=== PATIENT | male | born 1965 | race Caucasian/White ===

== ENCOUNTER 2023-03-06 13:41 | Outpatient (CLI) | payer OTHER, SELFPAY ==
[2023-03-06 20:09] LABS: Alanine Aminotransferase 23 U/L (6-50); Albumin Level 4.4 g/dL (3.5-5.1); Alkaline Phosphatase 66 U/L (38-126); Anion Gap 6 mmol/L (8-16); Aspartate Amino Transferase 31 U/L (17-59); Bilirubin,Total 0.9 mg/dL (0.2-1.3); Blood Urea Nitrogen 15 mg/dL (9-20); Calcium 9.6 mg/dL (8.4-10.2); Carbon Dioxide 27 mmol/L (22-30); Chloride 105 mmol/L (98-107); Cholesterol 138 mg/dL (0-200); Estimated Glomerular Filt Rate > 60; Glucose 85 mg/dL (65-110); HDL Direct 36 mg/dL; Potassium 3.8 mmol/L (3.4-5.0); Sodium 138 mmol/L (137-145); Triglycerides 79 mg/dL (<150)
[2023-03-06 20:20] LABS: LDL Cholesterol Direct 84 mg/dL
[2023-03-06 20:39] LABS: Prostate Specific Antigen 0.6 ng/mL (< OR = 4.0)
== END 2023-03-06 13:42 | disposition home or self-care (01) ==
LOC: ANHGOSHLAB 13:43
PROVIDERS: PCP Family Medicine; Visit Provider Family Medicine
DX: Z00.00 Encounter for general adult medical examination without abnormal findings (principal); E78.5 Hyperlipidemia, unspecified; I10 Essential (primary) hypertension; Z12.5 Encounter for screening for malignant neoplasm of prostate
CPT/HCPCS: 36415; 80053; 80061; 84153; G0103

== ENCOUNTER 2024-10-08 12:36 | Emergency (ER) | payer OTHER, SELFPAY ==
[2024-10-08 12:50] VITALS: BP 165/107; PULSE 67; RESP 20; TEMP 36.2; O2SAT 100
--- NOTE | 2024-10-08 12:55 | ECG_ITS ---
Test Date: 2024-10-08 13:01:34 Measurements Intervals Esko Rate: 63 P: 33 CO: 192 QRS: 43 QRSD: 108 T: 80 QT: 400 QTc: 412 Interpretive Statements SINUS RHYTHM INFERIOR ST ELEVATION MYOCARDIAL INFARCT, ACUTE BASELINE ARTIFACT- I, III ABNORMAL ECG No previous ECG available for comparison Electronically Signed On 10-08-2024 13:09:22 CDT by Jaspreet Licea D.O.
--- NOTE | 2024-10-08 13:03 | PC.NURSE ---
brought back to room, updated on status of pt and plan of care. Standing at bedside with pt.
[2024-10-08] MEDS: ASPIRIN 81 MG CHEWABLE TABLET 324 MG PO (13:09)
--- NOTE | 2024-10-08 13:10 | PC.NURSE ---
EMS here, report given.
--- NOTE | 2024-10-08 13:11 | PC.NURSE ---
Pt signed consent for transfer.
--- NOTE | 2024-10-08 13:18 | ED_ITS ---
HPI - Chest Pain General Chief Complaint: Chest Pain Stated Complaint: Nausea/Tight Chest/Back Pain/High Blood Pressure Time Seen by Provider: 10/08/24 12:54 Source: patient and RN notes reviewed Mode of arrival: ambulatory Limitations: no limitations History of Present Illness HPI narrative: Patient presents today complaining of sweats that started 5 hours prior to arrival, pain to the left scapula, epigastrium, lightheadedness, and left sternal border that started 4 hours prior to arrival. He was mowing his grass this morning, which is what he attributed his sweating to. He also has not had any food since 7:00 p.m. last night due to prepping for a colonoscopy tomorrow. He has not starting drinking the prep yet. He took a Tums, which he states helped slightly. He also applied Biofreeze to his scapula. Denies numbness or tingling in the extremities, vision changes, shortness of breath, headache. History of hypertension for which he takes amlodipine and losartan. Blood pressure upon arrival as 165/107. Related Data Home Medications ?Medication ?Instructions ?Recorded ?Confirmed ?Last Taken ?Type aspirin 81 mg tablet,delayed 81 mg PO DAILY 06/24/23 09/29/24 Unknown History release (Adult Low Dose Aspirin) Allergies Allergy/AdvReac Type Severity Reaction Status Date / Time Penicillins Allergy Mild Unknown Verified 10/08/24 13:21 Review of Systems Review of Systems: CONSTITUTIONAL: Denies body aches, fever, chills, or sweats. EYES: Denies visual changes, redness, or discharge. ENT: Denies rhinorrhea, congestion, sore throat, or otalgia. CARDIOVASCULAR: Denies palpitations, or edema.+ chest pain RESPIRATORY: Denies cough or dyspnea. GASTROINTESTINAL: Denies vomiting, or diarrhea.+ epigastric pain, nausea GENITOURINARY: Denies dysuria or hematuria. SKIN: Denies rash, itching, or wounds. MUSCULOSKELETAL: + left scapular pain NEUROLOGIC: Denies headache, numbness, tingling, or weakness.+ lightheadedness PSYCH: Denies depression or anxiety. [facility] Social History Social History Smoking packs per day: 1 Smoking cigarettes per day: 20.0 Years smoked: 41 Smoking pack-years: 41.00 Smoking status: Current every day smoker Tobacco type: cigarettes Alcohol intake: current Drinks per week: 1 Substance use type: does not use Living arrangements: with family Spiritual care concerns: No Comments At time of signature, I have reviewed and agree with nursing past medical, surgical, social and family history unless otherwise noted. Please see nursing chart for further information. There is no relevant family history pertinent to the presenting complaint Exam Narrative: GENERAL: Well-appearing, well-nourished, and in no acute distress. HEAD: Normocephalic, atraumatic. EYES: EOMI. No redness or drainage. Conjunctivae normal. ENT: Mucous membranes pink and moist. NECK: Normal AROM. CHEST: No respiratory distress. Clear to auscultation. Mildly tender to the left scapular border without crepitus or other abnormality HEART: Regular rate and rhythm. No murmur appreciated. Normal peripheral pulses. ABDOMEN: Soft, nontender, nondistended, normal active bowel sounds. MUSCULOSKELETAL: No bony tenderness to the left scapula. EXTREMITIES: Normal range of motion. No edema. SKIN: Warm, dry, no rash. Capillary refill normal. Normal skin turgor. NEURO: No focal deficits. Alert and oriented x3. Gait steady. PSYCH: Normal affect. No signs of depression or anxiety. Course Course Emergency Course: 1306- Report called to ED 1309- 324 ASA administered 1313- EMS arrived to transport pt to the ED. Level of Care: Express Care Visit Vital Signs Vital signs: Vital Signs Temperature 97.2 F L 10/08/24 13:10 Pulse Rate 10/08/24 13:10 Respiratory Rate 10/08/24 13:10 Blood Pressure 165/107 H 10/08/24 13:10 Oxygen Delivery Room Air 10/08/24 13:10 Temperature 97.2 F L 10/08/24 13:10 Pulse Rate 67 10/08/24 13:10 Respiratory Rate 10/08/24 13:10 Blood Pressure 165/107 H 10/08/24 13:10 Oxygen Delivery Room Air 10/08/24 13:10 Reviewed Transfer Transfered to: [place] Transportation: ALS Transfer rationale: ST elevation, chest pain Accepting physician: Valorie MARIE - Chest Pain Differential Diagnosis Differential diagnosis: Likely stable angina, atypical chest pain, st elevation myocardial infarction, chest pain and other (gastritis, dehydration, musculoskeletal pain, cholecystitis) ECG Data EKG #1: Attestation: I personally reviewed and interpreted this ECG as follows: ECG completion date: 10/08/24 ECG completion time: 13:01 Ischemic changes: acute STEMI and ST elevation Interpretation: ST elevation II, III, aVF. Depression aVL Critical Care Time Critical Care Time Critical Care Time: No Discharge Plan Discharge Clinical Impression: ST elevation Chest pain Qualifiers: Chest pain type: unspecified Qualified Code(s): R07.9 - Chest pain, unspecified Patient Disposition: Acute Care Hospital Condition: Serious Patient Language: Occitan Prescriptions: No Action aspirin [Adult Low Dose Aspirin] 81 mg tablet,delayed release (DR/EC) 81 mg PO DAILY losartan 100 mg tablet See Rx Instructions .ROUTE .COMPLEX Qty: 90 1RF Dose Instruction: TAKE 1 TABLET BY MOUTH DAILY Rx Instructions: TAKE 1 TABLET BY MOUTH DAILY amlodipine-atorvastatin 10-10 mg tablet See Rx Instructions .ROUTE .COMPLEX Qty: 90 1RF Dose Instruction: TAKE 1 TABLET BY MOUTH DAILY Rx Instructions: TAKE 1 TABLET BY MOUTH DAILY Follow-up/Referrals: Heber Harry MD [Primary Care Provider] - Time of Disposition: 13:20
== END 2024-10-08 13:16 | disposition short-term general hospital (02) ==
PROVIDERS: Emergency Provider Nurse Practitioner; PCP Family Medicine
DX: I21.3 ST elevation (STEMI) myocardial infarction of unspecified site (principal); R07.9 Chest pain, unspecified; F17.210 Nicotine dependence, cigarettes, uncomplicated; I10 Essential (primary) hypertension; E78.00 Pure hypercholesterolemia, unspecified
CPT/HCPCS: 93005; 99215; A9270; G0463

== ENCOUNTER 2024-10-08 13:32 | Inpatient (IN) | payer OTHER, SELFPAY ==
[2024-10-08] VITALS (41 sets, daily range): BP systolic 132–165; BP diastolic 87–114; PULSE 59–83; RESP 12–20; TEMP 36.2–36.6; O2SAT 92–100; BMI 31.1
--- NOTE | 2024-10-08 13:37 | ED_ITS ---
HPI - Chest Pain General Chief Complaint: Chest Pain Stated Complaint: STEMI History of Present Illness HPI narrative: 59-year-old male with history of hypertension presenting to the emergency department via EMS for concerns of STEMI. Patient presents to urgent care today after he had sudden-onset left scapular pain and epigastric pain with some nausea. He went to urgent care where they conducted an EKG that showed an inferior STEMI and called me in the emergency department for transfer. Patient received 324 mg aspirin at the urgent care and he feels markedly improved. No history of heart attacks in the past, only history of inguinal hernia repair but no other vascular procedures. Interventional Cardiology was spoken to and Dr. Barreto was made aware with EKGs reviewed and landscaping and groundskeeping laborer was activated for immediate transfer of the patient upon arrival to the emergency department. Related Data Home Medications ?Medication ?Instructions ?Recorded ?Confirmed ?Last Taken ?Type aspirin 81 mg tablet,delayed 81 mg PO DAILY 06/24/23 09/29/24 Unknown History release (Adult Low Dose Aspirin) Allergies Allergy/AdvReac Type Severity Reaction Status Date / Time Penicillins Allergy Mild Unknown Verified 10/08/24 13:21 Review of Systems Review of Systems: As reviewed above [facility] Social History Social History Smoking packs per day: 1 Smoking cigarettes per day: 20.0 Years smoked: 41 Smoking pack-years: 41.00 Smoking status: Current every day smoker Tobacco type: cigarettes Alcohol intake: current Drinks per week: 1 Substance use type: does not use Living arrangements: with family Spiritual care concerns: No Exam Narrative: GENERAL: [Well-appearing, well-nourished, and in no acute distress.] HEAD: [Normocephalic, atraumatic.] EYES: [PERRLA and EOMI.] ENT: Nares clear, no rhinorrhea or epistaxis. Mucous membranes moist. NECK: Supple. CHEST: [Clear to auscultation. No respiratory distress.] HEART: [Regular rate and rhythm]. No murmur heard. [Normal peripheral pulses.] ABDOMEN: [Soft, nondistended], [nontender], [No rigidity or guarding] EXTREMITIES: Normal range of motion. [No edema.] SKIN: Warm, dry, no rash. NEURO: [No focal deficits]. Alert and oriented [x3.] PSYCH: [Normal mood and affect.] MDM - Chest Pain MDM Narrative Medical decision making narrative: 59-year-old male with history of hypertension presenting to the emergency department as a STEMI activation. Urgent Care receive this patient earlier this morning after he arrived for concerns of sudden onset left scapular pain, epigastric pain and nausea at 8am. He was found to be mildly hypertensive and an EKG done at urgent care shows ST elevations in leads 2 3 and AVF. This EKG was transmitted to me in the emergency department and the catheterization lab wa s activated interventional Cardiology was made aware and has arrived to the ER to meet the patient. Patient examined, has strong symmetric pulses, clear breath sounds, no leg swelling. Pain is improved after aspirin. ST segment elevations mi confirmed on EKG and patient was transferred to the landscaping and groundskeeping laborer for definitive interventions with emergency dispatcher Dr. Calixto Barreto. Medical Records Data Attestation: I reviewed the patient's medical records. ECG Data EKG #1: Attestation: I personally reviewed and interpreted this ECG as follows: ECG completion date: 10/08/24 ECG completion time: 13:11 Prior ECG tracings: not available for review Ischemic changes: acute STEMI Interpretation: ST segment elevation in leads 2 3 and AVF with reciprocal depressions in leads aVL. Inferior STEMI. QTC 397 KS interval 192, QRS 116. Sinus rhythm with no ectopy. Critical Care Time Critical Care Time Critical Care Time: Yes Total Critical Care Time: 15 Discharge Plan Discharge Clinical Impression: STEMI (ST elevation myocardial infarction) Patient Disposition: Still a Patient Condition: Guarded Prognosis Time of Disposition: 13:41
--- NOTE | 2024-10-08 13:38 | PM.IMHP ---
H&P: HPI History of Present Illness Date/Time: 10/08/24 13:38 Chief Complaint: Chest pain Narrative: 59-year-old man with hypertension hyperlipidemia presented with chest pain. Substernal crushing chest discomfort started this morning after waking up. The pain persisted prompting him to visit the urgent care center where he was found to have ST-elevation NJ in inferior leads for which he was transferred to [facility] for primary PCI. Denies any bleeding issues. No previous vascular surgeries. No previous cardiac conditions. Review of Systems Cardiovascular: Cardiovascular: Reports as per HPI Respiratory: Respiratory: Reports as per HPI [facility] Social History Social History Smoking packs per day: 1 Smoking cigarettes per day: 20.0 Years smoked: 41 Smoking pack-years: 41.00 Smoking status: Current every day smoker Tobacco type: cigarettes Alcohol intake: current Drinks per week: 1 Substance use type: does not use Living arrangements: with family Spiritual care concerns: No Meds Home Medications and Allergies Home Medications ?Medication ?Instructions ?Recorded ?Confirmed ?Type aspirin 81 mg tablet,delayed 81 mg PO DAILY 06/24/23 09/29/24 History release (Adult Low Dose Aspirin) amlodipine 10 mg-atorvastatin 10 See Rx Instructions .Route 08/14/24 09/29/24 Rx mg tablet .COMPLEX #90 tabs losartan 100 mg tablet See Rx Instructions .Route 08/14/24 09/29/24 Rx .COMPLEX #90 tabs Allergies Allergy/AdvReac Type Severity Reaction Status Date / Time Penicillins Allergy Mild Unknown Verified 10/08/24 13:21 Exam Const: General: uncomfortable HENMT: Mouth: Yes dry mucous membranes Eyes: EOM: EOMs intact bilaterally Neck: Neck: no JVD Resp: Effort & Inspection: normal respiratory effort Cardio: Rate: regular rate Rhythm: regular rhythm Neuro: Speech: normal speech Extrem: General: no pedal edema Assessment and Plan Assessment and plan (1) STEMI (ST elevation myocardial infarction): Code(s): I21.3 - ST elevation (STEMI) myocardial infarction of unspecified site Status: Acute Plan 59-year-old man with hypertension hyperlipidemia presented with chest pain Inferior ST-elevation NJ -he is status post aspirin 324 mg chewable -will load with Brilinta 180 mg p.o. -we discussed the risk and benefits of cardiac catheterization with primary PCI on patient agreed to proceed forward -will proceed with emergent cardiac catheterization with primary PCI -will obtain transthoracic echocardiogram
--- NOTE | 2024-10-08 13:41 | P.SEDATION_ITS ---
Moderate Sedation Note-Pt Data Patient Data Allergies Allergy/AdvReac Type Severity Reaction Status Date / Time Penicillins Allergy Mild Unknown Verified 10/08/24 13:21 Home Medications ?Medication ?Instructions ?Recorded ?Confirmed ?Type aspirin 81 mg tablet,delayed 81 mg PO DAILY 06/24/23 09/29/24 History release (Adult Low Dose Aspirin) amlodipine 10 mg-atorvastatin 10 See Rx Instructions .Route 08/14/24 09/29/24 Rx mg tablet .COMPLEX #90 tabs losartan 100 mg tablet See Rx Instructions .Route 08/14/24 09/29/24 Rx .COMPLEX #90 tabs Current Medications: Active Medications Perflutren Lipid Microsphere (Perflutren Lipid Microspheres 1.5 Ml Vial Diluted To 10 Ml Total Volume) 0 ml IV PUSH ONCE PRN; Protocol PRN Reason: adequate visualization Stop: 10/11/24 13:41 Sedation/Anesthesia: No previous sedation/anesthesia problems (including family history). [facility] Social History Social History Smoking packs per day: 1 Smoking cigarettes per day: 20.0 Years smoked: 41 Smoking pack-years: 41.00 Smoking status: Current every day smoker Tobacco type: cigarettes Alcohol intake: current Drinks per week: 1 Substance use type: does not use Living arrangements: with family Spiritual care concerns: No Mod Sed Physical Exam Physical Exam Pre Procedural Exam: Normal: Lungs, Heart Size, Heart Rate and Heart Rhythm Hours since solid foods: 12 Hours since liquid intake: 12 Mallampati Classification: class III Internal Medicine - PN: Obj Da Meds/Results Medications: Active Medications Generic Name Dose Route Start Last Admin Trade Name Freq PRN Reason Stop Dose Admin Perflutren Lipid Microsphere 0 ml 10/08/24 13:40 Perflutren Lipid Microspheres 1.5 Ml Vial Diluted To 10 Ml Total Volume IV PUSH 10/11/24 13:41 ONCE PRN adequate visualization Protocol ASA Classification/Sedation ASA Classification/Sedation ASA Class: IV Emergent: Yes Risks: Risks, benefits and alternatives explained and patient/family accepted plan for sedation. Patient re-evaluated immediately prior to sedation.
--- NOTE | 2024-10-08 13:41 | WPDHPUPDATE1 ---
History and Physical Update Update Date/Time: 10/08/24 13:41 History and Physical has been reviewed, including an updated exam of the patient. There are NO changes in the patient's condition. Risks, benefits, and alternatives have been discussed and questions answered. Patient agrees to proceed with procedure.
--- OUTSIDE RECORDS SUMMARY | 2024-10-08 14:11 | XMS_ITS | Continuity of Care Document ---
Author Organization [facility] Address [address] [place] [address] Phone Care Team Providers Care Fan Runner Name Role Phone Cordelia YOUSSEF, Savannah Unavailable Unavailable Allergies, Adverse Reactions, Alerts Substance Reaction Status Criticality No Known Drug Allergies Active No I nformation No Known Drug Allergies Active No I nformation Medications Medication Instructions Dosage Effective Dates (start - stop) Status Comments Zithromax Z-Mirza 250 mg tablet take 2 tablet by oral route every day for 1 day then 1 tablet (250 mg) by oral route once daily for 4 days - No Longer Active Guaifenesin-DM 10 mg-100 mg/5 mL oral liquid take 5 milliliter by oral route every 4 hours as needed - No Longer Active Procedures Procedure Date Offic/outpt E&m Estab Mod-hi 2 17 Offic/outpt E&m Estab Low-mod 6 Offic/outpt E&m Estab Low-mod 6 TDAP Vaccine >7 IM Immuniz Admin; 1/combo Vacc/to 14 Offic/outpt E&m Estab Mod-hi 2 14 Well Visit (40-64) Office Exam - Limited Advance Directives Directive Yes / No Effective Date File Name No Information Encounters Encounter Description Practice Location Reason(s) For Visit Diagnoses Date Provider Providers Copied on Encounter Offic/outpt E&m Estab Mod-hi 2 [facility], [address], [place], [place], [id number] , [place] tel: [phone] [facility] Cough (chief complaint) Cough Dec- 7 Cordelia Nuñez. [address], [place], [place], [id number], [place]. tel:[phone] Referring Provider: Savannah YOUSSEF, [address], [place], [address]. tel:[phone] Offic/outpt E&m Estab Low-mod [facility], [address], [place], [place], [id number] , tel: [phone] [facility] Rt side lower Abdominal pain (chief complaint) Right lower quadrant abdominal pain 6 Mariana Bravo. [id number] [place] [address], [address], [place]. tel:[phone] Referring Provider: R[place]ña [place], [address] [place], [address]. tel:[phone] Offic/outpt E&m Estab Low-mod [facility], [address], [place], [place], [id number] , tel: [phone] [facility] Rt thigh pain (chief complaint) Pain of right lower extremity 6 Nathaniel Crockett. [address] [facility], [address], [place], [place], [id number], [place]. tel:[phone] [place]: [place], [address] [facility], [address], [place], [address]. [phone] Offic/outpt E&m Estab Mod-hi 2 [facility], [address], [place], [place], [id number] , [place] tel: [phone] [facility] head injury (chief complaint) VACCINE FOR DTP, DTaPLaceration of scalpHead injury, acute, without loss of consciousnessEleva jose f blood pressure 4 Mercy Carlson. [address] [address], [address], [place], [place], [id number], [place]. tel:[phone] Well Visit (40-64) [facility], [address], [place], [place], [id number] , tel:[phone] [facility] establish care (chief complaint) PHYSICAL/GEN MEDICAL EXAM 2 Nathaniel Crockett. [address] [facility], [address], [place], [place], [id number], [place]. tel:[phone] Referring Provider: [place], [address] [facility], [address], [place], [address]. tel:[phone] Office Exam - Limited [facility], [address], [place], [place], [id number] , tel:[phone] [facility] AnxietyInsomnia, OtherErectile Dysfunction 2 Mercy Carlson. [address] [facility], [address], [place], [place], [id number], . tel:[phone] Family History Family Member Type Diagnosis Age At Onset No Information Immunizations Vaccine Date Status Comments Tdap (Boostrix r) administered Source: [place] Immunization Record Payers Payer name Insurance type Covered libertarian ID Authoriza tion(s) No Information Social History Type Description Quantity Date Captured Comments Alcohol Use Details Unknown Caffeine Use Details Unknown Tobacco Use Status No Information Smoking Status No Information Sex Male Vital Signs Date / Time: Height Weight BMI Pulse Rate Blood Pressure Temperature Respiratory Rate Body Surface Area Head Circumference Head Circ. Percentile Wt./Parviz. Percentile BMI percentile Pulse Ox Inhaled Ox 8:11 PM 89 /min 157/93 mm[Hg] 99.00 F 14 /min 97 % Chief Complaint And Reason For Visit From encounter dated '01/03/2017 18:27'. Cough (chief complaint). Description: Onset: 1 Week. The severity of the problem is moderate. Symptoms are associated with recent cold. Aggravating factors include exertion. Associated symptoms include cough (hacking) and fever. Pertinent negatives include fatigue. Additional information: wakes up at night frequently. Reason For Referral Reason For Referral No Information Plan Of Treatment Date Type Action Status Goal H&P. Due on due Goal FOBT. Due on due Goal Colonoscopy. Due on 017 due Referral Ordered: US Abdomen Complete ordered Future Order: Radiology Order US Abdomen Complete ([id number]), Added on: New History Of Present Illness Encounter Date Complaint History Of Prese nt Illness Cough Onset: 1 Week. T he severity of the problem is moderate. Symptoms are associated with recent cold. Aggravating factors include exertion. Associated symptoms include cough (hacking) and fever. Pertinent negatives include fatigue. Additional information: wakes up at night frequently. Rt side lower Abdominal pain 2da y history of RLQ pain. Aching pain, 8/10, non radiating. +Lethargy, dizziness. Fever last night to 102.4F. +Chills. Decr appetite. No CP, no SOB, no diarrhea, no blood in the stool, no urinary symptoms. No strange foods eaten in the last 24hrs. No sick contacts, no recent travel. Still has appendix. Rt thigh pain pt c.o x 1 wk hx of pain in the upper right thigh, he was watching a movie with his and daughter and remembers feeling a tightness behind the right thigh, he states the symptom have gotten worse to the point that he is having problems sleeping at night, he is also traveling to [place] this Saturday and wants to make sure he does not have any blood clots, denies chest pain, shortness of breath head injury (comments) Patient s tates hit his head to a pole last night at home. No LOC. No headache, nausea, vomiting, dizziness, tingling or numbness. Last Td unknown possibly more than 5 years. BP high. Patient states has history of elevated BP, exercises daily and it has been controlled but not checked his BP recently. head injury Onset: 1 day ago . Additional information: hit on poolside. ar. establish care pt here to [facility], he needs a PA on his cialis bec his insurance is not covering it, has been on this medication for years, no complaints, he is also due for labs Functional Status Date Functional Assessmen t No Information Instructions Date Instruction Additional Infor mation Meds as prescribedCa n take Flonase OTCInstructed to increase fluids, gargle with salt waterTylenol or Motrin as needed for pain and feverRx sent to pharmacy for cough syrupNotified of potential for sedative effects of prescription cough syrup, do not drive while using itFollow up with Primary care provider in 1 week if not improving Related to Cough Get ultrasound done. If you have worsening abdominal pain, inability to tolerate food, persistent fever, blood in your stool go to the emergency room immediately. Related to Right lower quadrant abdominal pain DVT ultrasound to be done at [facility] [place] tomorrow at 10 AMTylenol with codeine take 1 tab at bedtime as needed for pain Related to Pain of right lower extremity Nutritional counseling provided Related to Obesity Physical activity counseling pro vided Related to Obesity Assessments Type Assessment Date assessment Cough Mental Status Date Cognitive Assessment Orientation - [place] ed to time, place, person, situation. Patient Care Teams Name Effective Dates (start - stop) Status Members No Information
--- OUTSIDE RECORDS SUMMARY | 2024-10-08 14:11 | XMS_ITS | Data Portability ---
Author Organization [place] - [facility] [employer], [facility], [facility] Address [address] [place] [address] Care Team Providers Care Branch Service Associate Name Role Phone Unavailable Referring Provider Assessment Encounter Date Assessment Date Assessment LastModified by Organization Details LastModified Time 09/26/2018 09/26/2018 Established patient. No local PCP, just moved to the area. [email or web address] Not available 09/27/2018 20:50:25 Plan of Treatment Reminders Order Date Submit Date Provider Last Modified By Organization Details Last Modified Time Details Appointments None recorded. Lab None recorded. Referral None recorded. Procedures None recorded. Surgeries None recorded. Imaging XR, ankle 2019 020 [facility], [facility], All Locations, [place], [address], 0 11:25:53 Medication Orders clonidine HCl 0.1 mg tablet 2022 023 yas Not available 3 18:52:07 clindamycin HCl 300 mg capsule 2022 023 [email or web address] [facility] #[id number], [address], [place], [place], [id number], 3 08:43:13 indomethaci n 50 mg capsule 2019 020 [email or web address][id number], [address], [place], [place], [id number], 3 08:01:49 doxycycline hyclate 100 mg tablet 2019 020 [email or web address] [facility] #[id number], [address] , [place], [place], [id number], 0 07:57:13 Bactrim DS 800 mg-160 mg tablet [address] [facility] #[id number], [address], [place], [place], [id number], 0 10:37:53 prednisone 10 mg tablet [address] [facility] #04139, [address] , [place], [place], [id number], 0 10:38:03 Depo-Medrol 80 mg/mL suspension for injection 2019 020 [email or web address] Not available 0 07:57:05 Patient TargetsNo targets recorded. Patient Instructions Encounter Date Encounter Id Patient Instructions Last Modified By Organization Details Last Modified Time 09/26/2018 [id number] subconjunctival hemorrhage: care instructions [email or web address] Not available 09/26/2018 10:09:05 subconjunctival hemorrhage information [email or web address] Not available 09/26/2018 10:09:05 Patient understa nds instructions and will seek medical attention if symptoms worsen as directed. Not available 09/26/2018 10:08:33 05/11/2019 [id number] chronic sinusiti s: care instructions [email or web address] Not available 05/11/2019 11:27:55 01/25/2020 [id number] Take medications as prescribed. If the mass enlarges, or rises to the skin surface, return for incision and drainage of the cyst. Not available 01/25/2020 10:58:48 This cyst remain s in a subacute stage, trial of oral antibiotic indicated. Not available 01/25/2020 10:59:22 04/13/2020 [id number] Rest. Take medications as prescribed. Ice area when painful. Follow-up with primary doctor in 10 to 14 days if not improved. Not available 04/13/2020 08:45:42 Pain localizes t o the area of the inferior extensor retinaculum, no muscular attachments exist in the area. Not available 04/13/2020 08:46:14 07/17/2022 [id number] Patient understa nds instructions and will seek medical attention if symptoms worsen as directed. [email or web address] Not available 07/17/2022 08:35:19 Reason for Referral None Reported. Results Created Date Observation Date Name Description Value Unit Range Abnormal Flag Note LastModifiedBy Organization Detail LastModifiedTime 04/13/20 20 04/13/2020 ankle 3V (comp lete) right No observ ation record ed. [id number] [facility] All Locations, [place], [address], 04/10/2024 19:36:59 Result Notes None recorded. Procedures Surgical History Date Name Laterality Status Provider Name and Address Organization Details Recorded Time Hernia repair completed [facility] 07/10/2018 14:32:51 Imaging Results None recorded. Procedure Notes None recorded. Medical Equipment None Reported. Allergies Allergen ID Allergen Name Allergen Category Reaction Reaction Severity Criticality Documentation Date Start Date Code Code System Note Provider Name and Address Organization Details Recorded Time 442096 Product containin g penicilli n (product) medicatio n Not available Not available Not available 07/10/2018 80295 8001 SNOMED Keke zacarias [facility] 9 13:21:04 Medications Name Sig Start Date Stop Date Status Note LastModified by Organization Details LastModified Time clonidine HCl 0.1 mg tablet one tab at 0825 am 2022 active Not Available Not Available Not Avai lable prednisone 10 mg tablet 1 tab 3 times daily 3 days, 1 tab twice daily 3 days, 1 tab daily 3 days. 01/24 completed Not Available Not Available Not Available clindamycin HCl 300 mg capsule Take 1 capsule every 6 hours by oral route. 2022 active Not Available Not Available Not Avai lable Depo-Medrol 80 mg/mL suspension for injection Take 80 mg by injection route. 04/13 completed Not Available Not Available Not Available amlodipine 10 mg tablet Take 1 tablet every day by oral route. active Not Available Not Available No t Available Lincocin 300 mg/mL injection solution Take 300 mg by injection route. 09/26 completed Not Available Not Available Not Available indomethaci n 50 mg capsule Take 1 capsule 3 times a day by oral route. 07/17 completed Not Available Not Available Not Available mupirocin 2 % topical ointment APPLY A SMALL AMOUNT TO THE AFFECTED AREA BY TOPICAL ROUTE 3 TIMES PER DAY 09/26 completed Not Available Not Available Not Available Aspir-81 mg tablet,jane yed release Take 1 tablet every day by oral route. active Not Available Not Available No t Available ketorolac 60 mg/2 mL intramuscul ar solution Inject 2 mL by intramusc ular route. 09/26 completed Not Available Not Available Not Available losartan 100 mg tablet Take 1 tablet every day by oral route. active Not Available Not Available No t Available doxycycline hyclate 100 mg tablet Take 1 tablet twice a day by oral route. 04/13 completed Not Available Not Available Not Available Bactrim DS 800 mg-160 mg tablet Take 1 tablet every 12 hours by oral route for 10 days. 01/24 completed Not Available Not Available Not Available Vitals Date Recorded Body height Body mass index (BMI) Body weight Body temperature Oxygen saturation Oxygen saturation in Arterial blood by Pulse oximetry Heart rate Respiratory rate Systolic blood pressure Diastolic blood pressure Provider Name and Address Organization Details Last Updated DateTime 0 185.42 cm 28.6 kg/m2 85719.5 4 g 98.3 [degF] 98 % 98 % 76 /min 16 /min 158 mm[Hg] 118 mm[Hg] Nohemy REARDON - [facility], [facility] 0 11:07:20 Date Recorded Systolic blood pressure Diastolic blood pressure Systolic blood pressure Diastolic blood pressure Provider Name and Address Organization Details Last Updated DateTime 07/17/2022 165 mm[Hg] 110 mm[Hg] 145 mm[Hg] 95 mm[Hg] SHARON CABALLERO [address], [place], [address] , [facility], [facility] 3 08:43:13 Date Recorded Body height Body mass index (BMI) Body weight Body temperature Heart rate Oxygen saturation Oxygen saturation in Arterial blood by Pulse oximetry Systolic blood pressure Diastolic blood pressure Provider Name and Address Organization Details Last Updated DateTime 3 185.42 cm 29.8 kg/m2 146591. 88 g 98.1 [degF] 78 /min 98 % 98 % 220 mm[Hg] 130 mm[Hg] Chalo Conte [facility], [facility] 3 08:08:51 Date Recorded Body height Body mass index (BMI) Body weight Body temperature Heart rate Oxygen saturation Oxygen saturation in Arterial blood by Pulse oximetry Systolic blood pressure Diastolic blood pressure Provider Name and Address Organization Details Last Updated DateTime 9 185.42 cm 27.8 kg/m2 46458.9 9 g 97.6 [degF] 72 /min 96 % 96 % 170 mm[Hg] 100 mm[Hg] Dominique Sánchez [facility], [facility] 9 09:36:44 Date Recorded Body height Body mass index (BMI) Body weight Heart rate Oxygen saturation Oxygen saturation in Arterial blood by Pulse oximetry Body temperature Systolic blood pressure Diastolic blood pressure Provider Name and Address Organization Details Last Updated DateTime 0 185.42 cm 29 kg/m2 39902.8 8 g 75 /min 98 % 98 % 98.3 [degF] 128 mm[Hg] 82 mm[Hg] Delfina Chatman [facility], [facility] 0 10:36:38 Date Recorded Body height Body mass index (BMI) Body weight Body temperature Oxygen saturation Oxygen saturation in Arterial blood by Pulse oximetry Heart rate Respiratory rate Systolic blood pressure Diastolic blood pressure Provider Name and Address Organization Details Last Updated DateTime 0 185.42 cm 29.8 kg/m2 553534. 44 g 97.3 [degF] 97 % 97 % 74 /min 16 /min 142 mm[Hg] 100 mm[Hg] Nohemy Seymour [place] - [facility] [facility] 0 07:53:01 Social History Question Answer Notes LastModified by Organizat ion Details LastModified Time Tobacco Smoking Status Current Every Day Smoker Keke Jose G [facility]acarias [facility] 07/10/2018 13:21:52 Alcohol Use Less Than 1 Per Month Information not available 07/10/2018 Marital Status Single Informatio n not available 07/17/2022 What Was The Date Of Your Most Recent Tobacco Screening? 09/26/2018 Information not available 07/17/2022 What Is Your Relationship Status? Single Information not available 07/17/2022 How Much Tobacco Do You Smoke? 0.5 PPD Information not available 07/10/2018 Sex: Unknown Functional Status None recorded. Mental Status None recorded. Family History Nothing Reported. Medical History Condition Response Cancer (location) N Other N Gout N Thyroid Disease N Kidney Stones N Measles/Mumps N Emphysema/COPD N Sexually Transmitted Disease N Depression N Prostate Problems N Vascular Disease N Rash/Skin Condition N Amputation (location) N Parkinson's N Paralysis N Headaches/Migraines N Cardiac Pacemaker/defibrillator N Nerve Damage / Neuropathy N Arthritis N Sleep disorder/Insomnia N Infertility N Heart disease / Heart Attack N Crohn's Disease N HIV/AIDS N Stroke/TIA N Colon Problems N High Cholesterol N Serious Injuries N Kidney Disease N Memory Loss/Alzheimer's N Gallbladder disease N High blood pressure Y Congestive heart failure N Falls N Alcohol Overuse N Blood Thinner Treatment N Hormone Replacement N Nervous Breakdown N Zhao's Esophagus N Anemia N Urinary Problems N Colon Polyps N Gastritis N Hospitalizations (other than operations) N Back pain N Diabetes N Rheumatic Fever N Bleeding Disorder N Cardiac Arrhythmias /irregular heart rat e N Osteopenia/Osteoporosis N Anxiety/Stress N Asthma N Vision Problems N Erectile / Sexual Dysfunction N Ostomies (location) N Seizures N Jaundice N Sleep Apnea N Hepatitis N Past Reacton to Contrast Media N Cirrhosis N GERD/Ulcer N Chicken Pox N Allergies (other than meds) N Immunizations Vaccine Type Date Status Note Provider Nam e and Address Organization Details Recorded Time TIG 03/29/2010 ALEXYS [place] [facility] 04/13/2020 07:55:48 Influenza, MDCK, quadrivalent, PF 01/25/2020 completed Nohemy zacarias [facility], [facility] 04/13/2020 07:55:48 Influenza, MDCK, quadrivalent, PF 03/29/2017 completed Nohemy zacarias, [facility], [facility] 04/13/2020 07:55:48 typhoid, ViCPs 05/27/2001 completed Nohemy ramirez null, [facility], [facility] 04/13/2020 07:55:48 Influenza, split virus, quadrivalent, PF 01/26/2020 completed Keke zacarias, [facility], [facility] 01/26/2020 08:46:59 Past Encounters Encounter ID Performer Location Encounter Start Date Encounter Closed Date Diagnosis/Indication Diagnosis SNOMED-CT Code Diagnosis ICD10 Code Diagnosis Note [id number] SALOME Tobar [facility] [address] [place] [address] 07/10/2018 12:58:31 07/12/2018 11:20:50 Nasal infection 943768945 J32.9 Acute, painful; initial encounter Pain of nose 711517470 J 34.89 Acute, initial encounter [id number] SALOME Fonseca [facility] [address] [place] [address] 09/26/2018 09:28:56 09/30/2018 16:51:27 Subconjunctival hemorrhage of right eye 2047371987 89141 H11.31 Acute. Incomplete control. Initial treatment. Informatio n sheet given to pt regarding subconjunc tival hemorrhage . Pt to monitor symptoms. Stressed need to go home and take blood pressure medication today. Need to monitor blood pressure closely. Goal for b/p is 120's/ 70's-80's. Encouraged good po fluid intake. Follow-up at the walk-in if no better or any worse. Patient voiced understand ing and agreement with treatment plan. [id number] SHARON Hargrove [facility] [address] [place] [address] 05/11/2019 10:19:29 05/12/2019 10:37:42 Sinusitis 27273880 J32.9 patient advised to take Bactrim and prednisone as directed. Patient is to take nasal spray hasn't home as directed. Can take Mucinex DM and Sudafed as directed. Increase fluids. [id number] Jorge Luis See , DO [facility] [address] [place] [address] 01/25/2020 10:18:27 01/25/2020 15:02:46 Sebaceous cyst of skin 089820674 L72.3 Administra tion of influenza vaccine 72722521 Z23 [id number] Jorge Luis See , DO [facility] [address] [place] [address] 04/13/2020 07:48:00 04/13/2020 11:49:24 Pain of right ankle joint 2518261396 2541258 M25.571 [id number] SHARON CABALLERO [facility] [address] [place] [address] 07/17/2022 07:52:26 07/17/2022 08:59:47 Infection of sebaceous cyst 401050446 L08.89 Acute, initial visit and symptomati c. Will elect to treat local right periorbita l skin infection with medication s as below and recommende d taking antibiotic with yogurt with acidophilu s and supportive treatment including rest and hydration. Also rec: hot soaks x 15 min. q 4 h and If no better in 5 to 7 days or symptoms worsen in the interim to return for reevaluati on. Patient fully understand s discharge instructio ns and is in total agreement of plan of care. Hypertensive disorder 38 726274 I10 Chronic, currently uncontroll ed, initial visit. Administer ed Clonidine 0.1 mg at 0825 am wth BP reduction of 145/95 at 0840. Recommende d to resume with antihypert ensives today and encouraged better adherence, reduce if not quit smoking, low-sodium diet less than 1500 mg/day and a consistent exercise program approachin g 90 minutes/we ek. He is to f/u with his PCP per her/his recommenda tions Health Concerns Section Related Observation LastModified by Organization Detai ls LastModified Time None Recorded Concern Status LastModified by Organization Details LastModified Time None Recorded Advance Directives Directive None Recorded Payers Insurance Date Sequence Insurance Name Policy Number Policy Hernandez Covered Member ID Hernandez Member ID Guarantor Name 07/17/2022 1 [facility] () Salvador Marsk [id number] Salvador Marks 02/04/2020 1 [employer] ( - MEDICARE SUPPLEMENT) Salvador Marks [id number] Salvador Marks Notes Date Note Type Note Provider Name and Address Organization Details Recorded Time 9 text/html Eye ComplaintReported bypatient.Reason for visit:acute complaint; Right eye, onset 1 day (last hs). Not a contact wearer. Denies a head ache, no eye pain. Last eye exam with current glasses 1 year ago. No hx of glaucoma. Location:right eye Quality:red eyes;irritation Severity:unchanged Duration:constant Onset/Timing:abrupt Context:no other sick contacts Alleviating factors:nothing Aggravating factors:nothing Associated Symptoms:no fever; no swollen lymph nodes; no head congestion Established patient. Patient c/o RT eye redness x 1 day. Denies coughing spells, denies vision changes, denies contact lense usage. SALOME Fonseca [address], [place], [address], [employer] [place] [facility] 09/27/2018 20:51:32 0 text/html 54-year-old male comes in with a 2 to three-week history of increased sinus congestion and pressure. Also complaining of slight cough and slight sore throat. Denies fever, nausea, vomiting or diarrhea. SHARON Hargrove [address], [place], [address], [employer] [facility], [employer] 05/11/2019 11:31:10 0 text/html CORONAVIRUS SCREENING TOOL Fever Confirmation No Respiratory Illnesses No Other New Symptoms None of the below Coronavirus Diagnosis/Testing/Quar antine No, I have not been tested Coronavirus Test Reason N/A Contact with Coronavirus No Imported from [facility] on 01/25/2020 54-year-old man presents with an uncomfortable lump on the back of the neck. Lump is been there for quite a few weeks, but overnight he noticed some discomfort with neck movement. Unrelated request for flu vaccination. Phuc See, DO [address], [place], [address], [employer], [employer] 01/25/2020 13:07:35 0 text/html 55-year-old man presents with insidious onset of right ankle pain. Pain is localized to the area of the medial malleolus. No injury, worse with weightbearing and prolonged activity such as playing golf. No history of gout. Phuc See, DO [address], [place], [address], [employer], [employer] 04/13/2020 09:09:21 3 text/html Abscess/CellulitisRepo rted bypatient.Reason for visit:acute complaint Location:right head(lateral to lateral canthus OD) Quality:inflammed;tend er Severity:worse Duration:constant Onset/Timing:abrupt;2 days ago Context:no recent travel; no recent injury; no recent stings/bites Alleviating factors:nothing Aggravating factors:squeezing it Associated Symptoms:no fever; no chills; no rigors; no dischargeHypertension/ Hypertensive diseasesReported bypatient.Reason for visit:exacerbation of chronic complaint Hypertension Diagnosis:Benign Essential hypertension Complications due to HTN:no complicatons Age of onset/treatment:unknow n years old Current therapy:antihypertensi ves; ARBs losartan; calcium channel blockers amlodipine Current control and compliance:usually well controlled; usually compliant with regimen (however has not taken his antihypertensives in 2 days) Current Symptoms/Concerns:none stated; no chest pain; no shortness of breath; no fatigue; no headaches; no blurred vision; no palpatations Express Covid Questions Are you feeling sick today? Includes any NEW symptom(s) among those listed previously that are NOT due to another health problem No Have you tested positive for COVID-19 in the past 10 days? No In the last 10 days, have you been exposed to someone who has tested positive for COVID-19? No Imported from [facility] on 07/17/2022 SHARON CABALLERO [address], [place], [address], [facility] [address] [facility], [facility] 07/17/2022 08:52:27
--- OUTSIDE RECORDS SUMMARY | 2024-10-08 14:11 | XMS_ITS | Patient Health Record ---
Author Organization [facility] Address [address] [address] Care Team Providers Care Head Batcher Name Role Phone Eligio Burns Primary Care Provider [phone] Allergies Allergen (clinical drug ingredient) Drug/Non Drug Allergy documented on EMR Reaction Allergy Type Onset Date Status Substance with penicillin structure and antibacterial mechanism of action (substance) Penicillins (uncoded) 12/23/2014-unkno wn Allergy Active Reason For Referral No Information Medications Medication SIG (Take, Route, Frequency, Duration) Notes Start Date End Date Status Nasonex 50 MCG/ACT 2 sprays in each nos tril Nasally Once a day for 7 days 03/19/2016 Active TobraDex 0.3-0.1 % 1 drop into affected eye Ophthalmic every 8 hrs Not-Takin g Aleve 220MG 1 tablet as needed P O PRN [facility]- 10/19/2014 Active Nasonex 50 MCG/ACT 2 sprays in each nos tril Nasally Once a day Not-Taking EC-81 Aspirin 81 MG 1 tablet Orally Once a day Active Vitamin D 2000 UNIT 1 tablet Orally Once a day Active Zithromax Z-Mirza 250 MG 2 tablets on the first day, then 1 tablet daily for 4 days Orally Once a day for 5 day(s) 04/20/2016 Not-Taking Ceftin 250 MG 1 tablet Orally Twic e a day for 7 days 03/19/2016 Not-Taking Losartan Potassium 100MG TAKE 1 TABLET DAILY Active amLODIPine Besylate 10MG TAKE 1 TABLET DAILY Active Zithromax Z-Mirza 250 MG 2 tablets on the first day, then 1 tablet daily for 4 days Orally Once a day for 5 day(s) 06/10/2015 Not-Taking Ceftin 250 MG 1 tablet Orally Twic e a day Not-Taking Immunizations Vaccine Route Administration Date Status Comme nts Influenzal (split), seasonal, intermuscular,preser vative free IM Intramuscular 02/04/2017 Administered Influenza, seasonal, injectable, preservative free, 3 yrs and above IM Intramuscular 03/06/2016 Administered Flu vaccine no Preserv 3 and > IM Intramuscular 02/22/2015 Administered Novartis Exp 08/2015 Problems Problem Type SNOMED Code ICD Code Onset Dates Problem Status W/U Status Risk Notes Problem Tobacco user (680892132) Nicotine dependence, cigarettes, uncomplicated (F17.210) Active confirmed Problem Essential hypertension (64414604) Essential (primary) hypertension (I10) Active confirmed Problem Gastro-esophageal reflux disease without esophagitis (890292015) Gastro-esophagea l reflux disease without esophagitis (K21.9) Active confirmed Problem 64622628 Hyperglycemia (R73.9) Active confirmed Problem 53931846 Vitamin D deficiency (E55.9) Active confirmed Problem 06780422 Blepharitis (H01.009) Active confirmed Problem 95829683 Rhinitis (J31.0) Active confirmed Problem 480946186048134 Acute conjunctivitis, left eye (H10.32) Active confirmed Problem 128034586 Esophageal reflux (K21.9) Active confirmed Problem 10607456 Tobacco use disorder (Z72.0) Active confirmed Problem 384901875 Other symptoms involving head and neck (R68.89) Active confirmed Problem 45546449 Allergic rhinitis (J30.9) Active confirmed Plan Of Treatment Pending Test Test Name Order Date LIPID PANEL 10/18/2015 LIPID PANEL WITH REFLEX TO DIRECT LDL BASIC METABOLIC PANEL 11/22/2016 COMPREHENSIVE METABOLIC PANEL 07/14/2016 COMPREHENSIVE METABOLIC PANEL 10/18/2015 COMPREHENSIVE METABOLIC PANEL 03/03/2016 CBC (INCLUDES DIFF/PLT) 03/03/2016 CBC (INCLUDES DIFF/PLT) 10/18/2015 CBC (INCLUDES DIFF/PLT) 11/22/2016 PSA, TOTAL 07/14/2016 TSH 03/03/2016 VITAMIN D,25-OH,TOTAL,IA 03/03/2016 VITAMIN D,25-OH,TOTAL,IA 11/22/2016 Insurance Providers Payer Name Payer Address Payer Phone Subscriber Number Group Number Insured Name Patient Relationship to Insured Coverage Start Date Coverage End Date MARIELA MIDDLETON [address] [place], [place] [id number] MARIO POLK Self - patient is the insured 0 Medical (General) History Surgical History Surgery Date(Month/Year) Foot Surgery ;
--- OUTSIDE RECORDS SUMMARY | 2024-10-08 14:11 | XMS_ITS | Continuity of Care Document ---
Author Organization Sean Knight MD, MPH. Inc. Address [address] [place] [address] Phone Care Team Providers Care Slicing Machine Feeder Name Role Phone Sean Knight MD Unavailable Unavailable Allergies, Adverse Reactions, Alerts Substance Reaction Status Criticality No Known Allergies Active No Inform ation Medications Medication Instructions Dosage Effective Dates (start - stop) Status Comments pantoprazole 40 mg tablet,delayed release take 1 tablet by oral route every day 40 MG - Active Cipro 500 mg tablet take 1 tablet by ora l route every 12 hours 500 MG - Active Flagyl 500 mg tablet take 1 tablet by OR AL route 2 times every day 500 MG - Active Xanax 0.25 mg tablet take 1 tablet by or al route every day 0.25 MG - Active Procedures Procedure Date Offic/outpt E&m Estab Mod-hi Colonoscopy Flex; W/remov Les- 20 Ugi Endo; W/bx 1/mx US Abdomen Complete US Retroperitoneal Compl. (Renal & Bladd er) Offic/outpt E&m Estab Mod-hi US Abdomen Complete US Retroperitoneal Compl. (Renal & Bladd er) Offic/outpt E&m Estab Mod-hi 4 18 Colonoscopy Flex; W/remov Les- 18 Offic/outpt E&m Estab Mod-hi 4 17 Colonoscopy Flex; W/remov Les- 17 Offic/outpt E&m Estab Mod-hi 4 17 Colonosocpy Flex; Remov Les-fo 17 US Abdomen Complete US Retroperitoneal Compl. (Renal & Bladd er) Offic Cons New/estab Mod-hi 80 17 Advance Directives Directive Yes / No Effective Date File Name No Information Encounters Encounter Description Practice Location Reason(s) For Visit Diagnoses Date Provider Providers Copied on Encounter Offic/outpt E&m Estab Mod-hi Sean Knight MD, MPH. Inc., [address] [place] [address], [id number] , tel: [phone] Sean Knight [facility], MPH[facility] Inc[facility] Dyspepsia (chief complaint)Ga stritis Atrophic (chief complaint)GE RD w/ esophagitis (chief complaint) Gastro-esophage al reflux disease with esophagitisChro jessy atrophic gastritis without bleedingFunctio nal dyspepsia 0 Eugene Estrada. [address], [address] [place] [address], [id number] , [place]. tel: [phone] Referring Provider: Sean Knight MD , [address], [place], [address] . tel:[phone] Sean Knight MD, MPH. Inc., [address], [address] , [place] tel: [phone] [facility] No Information 0 Eugene Estrada. [address], [address], [place], [id number] , [place]. tel:[phone] Referring Provider: Sean Knight MD , [address], [place], [address] . tel:[phone] Sean Knight MD, MPH. Inc., [address], [id number] , [place] tel: [phone] Sean Knight MD, MPH, Inc[facility] No Information 0 Eugene Estrada. [address], [address], [place], [place], [id number] , [place]. tel:[phone] Referring Provider: Sean Alves, [address], [place], [address] . tel:[phone] Offic/outpt E&m Estab Mod-hi Sean Knight MD, MPH. Inc., [address], [id number] , [place] tel:[phone] Sean Knight MD, MPH[facility] Inc[facility] Right lower abdominal pain (chief complaint)Dy spepsia (chief complaint)Di verticulosis (chief complaint) Right lower quadrant painDiverticula r disease of colonFunctional dyspepsia 0 Eugene Estrada. [address], [address], [place], [id number] , [place]. tel:[phone] Referring Provider: Sean Knight MD , [address], [place], [address] . tel:[phone] Sean Knight MD, MPH. Inc., [address], [place], [id number] , [place] tel:[phone] Sean Knight MD, MPH, Inc[facility] No Information 8 Eugene Estrada. [address], [address], [place], [id number] , [place]. tel:[phone] Referring Provider: Sean Knight MD H, [address], [place], [address] . tel:[phone] Offic/outpt E&m Estab Mod-hi 4 Sean Knight MD, MPH. Inc., [address], [place], [address] , [place] tel:[phone] Sean Knight MD, MPH, Inc. colon polyp of ascend colon (chief complaint)di verticulosis (chief complaint) Benign neoplasm of ascending colonDiverticul ar disease of colon 8 Eugene Estrada. [address], [address], [id number] , [place]. tel: [phone] Referring Provider: Sean Knight MD H, [address], [place], [address] . tel:[phone] Sean Knight MD, MPH. Inc., [address], [id number] , [place] tel: [phone] [facility] No Information 8 Eugene Estrada. [address], [address], [place], [address] , [place]. tel: [phone] Referring Provider: Sean Alves, [address], [place], [address] . tel:[phone] Offic/outpt E&m Estab Mod-hi 4 Sean Knight MD, MPH. Inc., [address] [place] [address], [id number] , [place] tel:[phone] Sean Knight MD, MPH[facility] Inc[facility] Colon polyp of ascend colon (chief complaint)Co gio polyp of sigmoid (chief complaint) Benign neoplasm of ascending colonBenign neoplasm of sigmoid colon 7 Eugene Estrada. [address], [address], [place], [address] , [place]. tel: [phone] Referring Provider: Sean Alves, [address], [place], [address] . tel:[phone] Sean Knight MD, MPH. Inc., [address] [place] [address], [id number] , [place] tel: [phone] [facility] No Information 7 Eugene Estrada. [address], [address], [place], [place], [address] , [place]. tel: [phone] Referring Provider: Sean Alves, [address], [place], [address] . tel:[phone] Offic/outpt E&m Estab Mod-hi 4 Sean Knight MD, MPH. Inc., [address], [address] , [place] tel: [phone] Sean Knight MD, MPH, Inc. Dyspepsia (chief complaint)GE RD w.o esophagitis (chief complaint)NA SH (chief complaint) Functional dyspepsiaGastro -esophageal reflux disease with esophagitisFatt y (change of) liver, not elsewhere classified 7 Eugene Estrada. [address], [address], [place], [address] , [place]. tel: [phone] Referring Provider: Sean Alves, [address], [place], [address] . tel:[phone] Sean Knight MD, MPH. Inc., [address], [address] , [place] tel: [phone] [facility] No Information 7 Eugene Estrada. [address], [address], [place], [address] , [place]. tel: [phone] Referring Provider: Sean Knight MD H, [address], [place], [address] . tel:[phone] Sean Knight MD, MPH. Inc., [address], [address] , [place] tel: [phone] Sean Knight MD, MPH, Inc. No Information 7 Eugene Estrada. [address], [address], [place], [address] , . tel: [phone] Sean Knight MD, MPH. Inc., [address] [facility] [address] [place] [address], [id number] , tel: [phone] Sean Knight MD, MPH, Inc. No Information 7 Eugene Estrada. [address], [address] , . tel: [phone] Referring Provider: Sean Alves, [address], [place], [address] . tel:[phone] Offic Cons New/estab Mod-hi 80 Sean Knight MD, MPH. Inc., [address], [id number] , tel: [phone] Sean Knight MD, MPH, Inc[facility] Lower Abdominal pain (chief complaint)NA SH (chief complaint)Sc reening colonoscopy (chief complaint) Lower abdominal pain, unspecifiedUnsp ecified cirrhosis of liverEncounter for screening for malignant neoplasm of colon 7 Eugene Estrada. [address], [place], [id number] , . tel: [phone] Referring Provider: Sean Alves, [address] [place] [address], [address] . tel:[phone] Family History Family Member Type Diagnosis Age At Onset No Information Payers Payer name Insurance type Covered alliance party ID Authoriza tion(s) [facility] [id number] Social History Type Description Quantity Date Captured Comments Alcohol Use Details Unknown Caffeine Use Details Unknown Tobacco Use Status No Information Smoking Status No Information Sex Male Vital Signs Date / Time: Height Weight BMI Pulse Rate Blood Pressure Temperature Respiratory Rate Body Surface Area Head Circumference Head Circ. Percentile Wt./Parviz. Percentile BMI percentile Pulse Ox Inhaled Ox 9:02 AM 75.00 in 100.244 kg (221.00 lbs) 27.6 2 kg/m eter (2) 68 /min 160/95 mm[Hg] Chief Complaint And Reason For Visit From encounter dated '07/14/2019 09:15'. Dyspepsia (chief complaint) Gastritis Atrophic (chief complaint) GERD w/ esophagitis (chief complaint) Reason For Referral Reason For Referral No Information Plan Of Treatment Date Type Action Status Goal Lipid Panel. Due on due Goal FOBT. Due on due Goal H&P. Due on due Goal Lipid Panel. Due on due Goal H&P. Due on due Goal FOBT. Due on due Goal Lipid Panel. Due on 018 due Goal H&P. Due on due Goal Lipid Panel. Due on due Goal H&P. Due on due Goal Lipid Panel. Due on due Goal H&P. Due on due Goal FOBT. Due on due Goal H&P. Due on due Goal Colonoscopy. Due on due Goal Lipid Panel. Due on due History Of Present Illness Encounter Date Complaint History Of Prese nt Illness GERD w/ esophagitis Dyspepsia Gastritis Atrophic Right lower abdominal pain Dyspepsia Diverticulosis colon polyp of ascend colon diverticulosis Colon polyp of ascend colon Colon polyp of sigmoid Dyspepsia GERD w.o esophagitis CRAIG Lower Abdominal pain CRAIG Screening colonoscopy Functional Status Date Functional Assessmen t No Information Instructions Date Instruction Additional Infor mation No Information Assessments Type Assessment Date assessment Gastro-esophageal reflux disease with esophagitis assessment Chronic atrophic gastritis witho ut bleeding assessment Functional dyspepsia Mental Status Date Cognitive Assessment Orientation - [place] ed to time, place, person, situation.Normal Orientation Patient Care Teams Name Effective Dates (start - stop) Status Members No Information
--- OUTSIDE RECORDS SUMMARY | 2024-10-08 14:11 | XMS_ITS | Continuity of Care Document ---
Author Organization [facility] Address [address] [place] [address] Care Team Providers Care Job Estimator Name Role Phone Noelle Mcintyre MD Unavailable Unavailable Allergies, Adverse Reactions, Alerts Substance Reaction Status Criticality No Known Allergies Active No Inform ation Medications Medication Instructions Dosage Effective Dates (start - stop) Status Comments Sutab 1.479-0.188-0.225 gram tablet take by oral route as directed per package instructions 0.00 - Active flecainide 50 mg tablet - Active Procedures Procedure Date Offic/outpt E&m [facility] Advance Directives Directive Yes / No Effective Date File Name No Information Encounters Encounter Description Practice Location Reason(s) For Visit Diagnoses Date Provider Providers Copied on Encounter [facility], [address], [place], [place], [id number] , [facility] No Information 2 Miguelina Drake. [address], [address], [place], [place], [address] . tel:[phone] Referring Provider: [place], [address] [address], [address], [place], [address]. tel:[phone] Offic/outpt E&m [facility], [address], [place], [place], [address] , [facility] Colon cancer screening (chief complaint) GERD (chief complaint) Encounter for screening for malignant neoplasm of colonHistory of colon polypsFamily history of colon cancerGastroesophage al reflux disease, unspecified whether esophagitis present Sep 2 Miguelina Drake. [address], [place], [place], [address] . [phone] [place], [address] [address], [address], [place], [address]. tel:[phone] Family History Family Member Type Diagnosis Age At Onset Father Problem cancer of colon (Cause Of De ath) 81 Payers Payer name Insurance type Covered libertarian ID Authoriza tion(s) [facility] PPO CI [id number] Social History Type Description Quantity Date Captured Comments Alcohol Use Details Unknown Caffeine Use Details Unknown Tobacco Use Status No Information Smoking Status No Information Sex Male Chief Complaint And Reason For Visit No Information Reason For Referral Reason For Referral No Information Plan Of Treatment Date Type Action Status Goal CT-Colonography. Due on due Goal Colonoscopy. Due on due Goal Zoster vaccine (1st). Due on due Goal Unhealthy drug use screening . Due on due Goal H&P. Due on due Goal Hepatitis C screening. Due o n due Goal FOBT. Due on due Goal FIT. Due on due Goal FIT-DNA. Due on due Goal Lipid Panel. Due on due Goal FOBT. Due on due Goal Lipid Panel. Due on due Goal H&P. Due on due Goal Colonoscopy. Due on due History Of Present Illness Encounter Date Complaint History Of Prese nt Illness Colon cancer screening (comments ) pt referred for history of polyp, came with ,Rachel , also a pt pt had history of large polyp . had colonoscopy 2-[address] Albina Knight. last colonsocopy 3 yr ago with polyp. father dx of colon cancer at 81 and at 83. GERD (comments) occasional sx de pend on diet. no n/v not taking OTC med yet. no cough. GERD Colon cancer screening Prior scr eening: colonoscopy. Risk Factors: family history - parent. There are no associated symptoms. Pertinent negatives include abdominal pain, change in bowel habits, change in stool caliber, constipation, decreased appetite, diarrhea, melena, nausea, rectal bleeding, vomiting, weight gain and weight loss. Additional information: No family history of Crohn's/colitis and Patient has family history of colon cancer. Functional Status Date Functional Assessmen t No Information Instructions Date Instruction Additional Infor nancy mild sx. no alarming sx1. Anti-reflux precautions:a. Avoid and minimized irritant food, including citrus, spicy, fatty, alcohol, etc.b. Avoid laying down after meal, wait at least 3-4 hours.c. Avoid wear tight clothingd. Do not drink and minimized carbonation and sodaRTC after colonoscopy Related to Gastroesophageal reflux disease, unspecified whether esophagitis present will obtain record if availabe R elated to History of colon polyps father at 81 Related to Famil y history of colon cancer history of polyp . d ue for survelilanc e1. Colonoscopy is recommended. The benefits, risks (including but not limited to are sedation, bleeding, infection, perforation, missed lesions including polyp and cancer, cardiopulmonary risk, etc. ) and alternatives were explained to patient. Patient agreed and expressed understanding. Patient will arrange for ride home, and to follow bowel preparation instruction. 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 increase risk for sedation, will obtain MAC Related to Encounter for screening for malignant neoplasm of colon Assessments Type Assessment Date No Information Patient Care Teams Name Effective Dates (start - stop) Status Members No Information
[2024-10-08 14:33] LABS: Hematocrit 39.4 % (42.0-52.0); Hemoglobin 13.2 g/dL (14.0-18.0); Mean Corpuscular HGB Conc 33.5 g/dl (32-36); Mean Corpuscular Hemoglobin 30.2 pg (26-34); Mean Corpuscular Volume 90.2 fl (80-100); Mean Platelet Volume 9.6 fl (7.4-10.4); Platelet Count Result 175 k/mm3 (150-375); Red Blood Count 4.37 M/mm3 (4.6-6.20); Red Cell Distribution Width 13.5 % (11.5-14.5)
[2024-10-08 14:43] LABS: Alanine Aminotransferase 14 U/L (6-50); Albumin Level 3.1 g/dL (3.5-5.1); Alkaline Phosphatase 48 U/L (38-126); Anion Gap 10 mmol/L (4-12); Aspartate Amino Transferase 33 U/L (17-59); Bilirubin,Total 0.6 mg/dL (0.2-1.3); Blood Urea Nitrogen 14 mg/dL (9-20); Calcium 7.4 mg/dL (8.4-10.2); Carbon Dioxide 21 mmol/L (22-30); Chloride 104 mmol/L (98-107); Estimated Glomerular Filt Rate > 60; Glucose 91 mg/dL (65-110); Potassium 3.1 mmol/L (3.4-5.0); Sodium 135 mmol/L (137-145); Total Protein 5.3 g/dL (6.3-8.2)
[2024-10-08 14:58] LABS: Troponin I 0.843 ng/mL (0.000-0.034)
[2024-10-08 15:12] LABS: Activated Clotting Time 268 SEC (74-137)
[2024-10-08 15:12] LABS: Activated Clotting Time 268 SEC (74-137)
--- NOTE | 2024-10-08 15:38 | ADMGEN ---
This patient, Salvador Marks, was admitted to Virtual Bed ICU-1. Patient/family oriented to hospital policies and general routines including ID bracelet, bed and alarms, visiting hours, pain management, procedures, bathroom and other care routines, personal items, smoking policy, room service/diet, and visiting hours. Information on how to activate the Rapid Response Team has been discussed. Patient/Family are encouraged to report perceived risks to care and to ask questions if they do not understand what they are told or what they should do.
--- NOTE | 2024-10-08 15:51 | ECG_ITS ---
Test Date: 2024-10-08 16:35:22 Measurements Intervals [place] Rate: 59 P: 25 IA: 183 QRS: -17 QRSD: 102 T: 28 QT: 410 QTc: 409 Interpretive Statements SINUS BRADYCARDIA INFERIOR ST ELEVATION MYOCARDIAL INFARCT- SUBACUTE BASELINE ARTIFACT- I, II, III, AVVR, AVL, AVF ABNORMAL ECG Compared to ECG 10/08/2024 13:01:34 STEMI EVOLVING Electronically Signed On 10-08-2024 16:49:48 CDT by Jaspreet Licea D.O.
--- NOTE | 2024-10-08 15:57 | P.PCNCC_ITS ---
Cardiac Cath Procedure Note Date of procedure:: 10/08/24 Performing physician:: CATHETERIZATION LABORATORY REPORT Procedure Date: 10/08/2024 Referring Physician: Dr. Eugene Anesthesia: Versed and Fentanyl were ordered and given in my presence at 1349, procedure ended at 1510. Supervision of nurse, Negra Chris monitored moderate sedation with 2mg Versed and 150mcg Fentanyl was provided for 81 minutes. Pre-op Diagnosis: Inferior ST-elevation WI Post-op Diagnosis: Inferior ST-elevation WI Procedure(s): Left heart catheterization with coronary angiography Ultrasound-guided arterial access IVS guided PCI Right iliofemoral angiogram Moderate sedation Angio-Seal Access Site: Right radial artery Brief History and Clinical Indications: 59-year-old man with hypertension hyperlipidemia presented with chest pain whose clinical presentation is consistent with inferior ST-elevation WI All risks, benefits and alternatives to left heart catheterization with or without percutaneous coronary intervention was discussed at length with the patient. Risk of complications including but not limited to bleeding, infection, arrhythmia, stroke, worsening kidney function, blood loss, groin hematoma, limb loss, emergency coronary artery bypass grafting, and even were discussed with the patient and all questions were answered. The patient understood and wished to proceed. Time out called, patient name, date of , medical record number, allergies, procedure performed, identify Associate Financial Representative, patient and staff member concurred with accurate data, procedure carried on. Findings: LEFT HEART CATHETERIZATION FINDINGS: 1. Left main: The left main coronary artery is angiographically normal. 2. Left anterior descending: The LAD gives off 2 diagonal branches. The 1st diagonal branch is small and insignificant. The 2nd diagonal branch is a moderate caliber vessel with no angiographic high-grade stenosis. LAD has luminal irregularities. 3. Left circumflex: The left circumflex artery provides 1 significant OM branch. The proximal left circumflex has 10-20% stenosis. The distal left circumflex going into the 1st OM branch has severe 90% stenosis. 4. Right coronary artery: The RCA is occluded in its distal body. There collaterals being supplied by the left circumflex system as well as the LAD septal botany technician branches. 5. Left ventricle: A. End-diastolic pressure 36 mmHg. B. LV gram deferred. C. No significant gradient across aortic valve on catheter pullback. 6. Opening AO pressure 180/111 and closing AO pressure 130/81 7. Mild diffuse disease in the visualized portions of the right external iliac artery and right FACILITY REHAB DIRECTOR. There were no angiographic disease in the visualized portions of the right SFA and Profundus Description of Procedure: Informed consent signed and placed in the chart. Patient transferred to senior cytogenetics laboratory director room. Prepped and draped in usual sterile fashion. 2% lidocaine in right groin area. Micropuncture needle used to access right common femoral artery with Seldinger technique under ultrasound and fluoroscopic guidance. J wire advanced, micropuncture cannula placed, and exchanged out for a 6 Singaporean sheath. A JL4 diagnostic catheter was used to attempt engagement of Left Main Coronary Artery; however, given enlarged aortic root, we exchanged out for a JL5 diagnostic catheter. A JR4 guide catheter was used to engaged Right Coronary Artery. Multiple orthogonal angiogram obtained and reviewed. Given the patient's persistent ST elevation as well as angina, we proceeded with PCI. Procedure Description for PCI: Heparin was used for anticoagulation (ACT maintained above 250) Patient loaded with heparin at 70 units/kg. 0.014 Runthrough coronary wire was passed in to the distal RCA; however, with patient's deep inhalation and movement, the guide disengaged and the wire position was lost. Due to initial difficulties torqueing the catheter due to iliac and aortic tortuosities, we exchanged out our 6F Prelude short sheath for a 6F Hardeep 45cm sheath. Due to the take off of the RCA, we switched to an AL 0.75 6F guide catheter. We then re-engaged the RCA using the AL 0.75 6F guide and rewired the RCA with the 0.014 Runthrough coronary wire. The lesion was pre-dilated with a 2.0 x 15mm balloon inflated to high CASTILLO. The vessel was much larger than expected so a 3.0 x 20mm balloon was used to further predilate the lesion. At this time, patient went into sinus arrest with ventricular escape rhythm for which we asked the patient to cough and administered atropine with recovery of sinus rhythm and normal ventricular rates. During this time, the right femoral vein was quickly cannulated under ultrasound guidance with a 7F sheath in the situation that a TVP would be needed. Fortunately, this was not needed. At this time, we ensure there was MACKENZIE 3 flow which there was MACKENZIE 3 flow. A 3.5 x 18mm [place]wood Grainger LORETO was successfully deployed into distal RCA at nominal pressures. This was overlapped with a 4.5 x 15mm [place] Grainger LORETO proximally also in the distal RCA at 14atm. We then brought in an IVUS catheter that showed well expanded stent; however, there was an area where the stents overlapped where the smaller stent is not well apposed to the wall for which we brought in a 4.5 x 12mm and post dilated to 14atm. There was no-reflow phenomenon for which we gave nitroglycerin 200mcg IC, adenosine 200mcg IC, 1/2 b olus of integrillin slowly IC, and nicardipine 200mcg IC with caodaism of MACKENZIE 3 flow. All coronary equipment was removed under fluoroscopy and final angiography demonstrated excellent results. We then exchanged our guide catheter for a 5F pigtail catheter to obtain LVEDP and pull back gradients across the aortic valve. A right iliofemoral angiogram was then performed showing adequate puncture site and suitability for Angioseal, which was used to achieve hemostasis. The right femoral vein sheath will be manually pulled when ACT < 180 or PTT < 50 as the side port tip touched an area that was not sterilized. Pre-procedure - MACKENZIE 0 flow Post-procedure - MACKENZIE 3 flow No angiographic complications identified. Assessment: Successful IVUS guided PCI to the distal RCA with overlapping 3.5 x 18mm and 4.5 x 15mm Fredo Grainger LORETO; post dilated with 4.5 x 12mm NC to 14atm with excellent angiographic results. Post Operative Condition: Stable No significant blood loss Disposition: ICU Plan: Start ASA 81mg daily, Ticagrelor 90mg PO BID, Carvedilol 3.125mg PO BID, and Atorvastatin 80mg qhs Obtain TTE, trend trop to peak, and outpatient stage PCI to the LCx Pull venous sheath when PTT < 50 or ACT < 180 Calixto Barreto Interventional Cardiology
[2024-10-08] MEDS: POTASSIUM CHLORIDE 20 MEQ PACKET (FOR LIQUID) 40 MEQ PO (16:18)
[2024-10-08 17:01] LABS: MRSA (PCR) NOT DETECTED (NOT DETECTE)
--- NOTE | 2024-10-08 17:34 | ECG_ITS ---
Test Date: 2024-10-08 17:37:38 Measurements Intervals [place] Rate: 60 P: 62 HI: 186 QRS: -20 QRSD: 103 T: -23 QT: 405 QTc: 408 Interpretive Statements SINUS RHYTHM INFERIOR ST ELEVATION MYOCARDIAL INFARCTION, PROBABLY RECENT BASELINE ARTIFACT- I, II, AVR ABNORMAL ECG Compared to ECG 10/08/2024 16:35:22 STEMI IN EVOLUTION Electronically Signed On 10-08-2024 21:05:05 CDT by Jaspreet Licea D.O.
--- NOTE | 2024-10-08 17:41 | PC.NURSE ---
Notified Dr. Barreto of pt complaining of chest pain 07/06, describing it more like indigestion. New order to start carvedilol now and give PRN Mylanta now. Call with troponin results
[2024-10-08 17:43] LABS: Magnesium 1.9 mg/dL (1.6-2.3)
[2024-10-08] MEDS: carvediloL 3.125 MG TABLET PO (17:50)
[2024-10-08] MEDS: ATORVASTATIN 40 MG TABLET 80 MG PO (17:50)
[2024-10-08 17:53] LABS: Partial Thromboplastin Time 174.4 Seconds (22.3-36.8)
--- NOTE | 2024-10-08 18:03 | PC.NURSE ---
Called Dr. Barreto with critical troponin results. New order for 40mg IVP Lasix now. Repeat troponin at midnight
[2024-10-08] MEDS: FUROSEMIDE INJ 40 MG/4 ML VIAL IV PUSH (18:25)
[2024-10-08] MEDS: MAGNESIUM OXIDE 400 MG TABLET PO (18:25)
[2024-10-08 20:38] LABS: Partial Thromboplastin Time 29.9 Seconds (22.3-36.8)
[2024-10-08] MEDS: TICAGRELOR 90 MG TABLET PO (20:41)
--- NOTE | 2024-10-08 23:26 | PC.NURSE ---
Venous sheath removed at 2240 with DONALDO Garcia at bedside. Atropine obtained prior to removing sheath per protocol. Manual pressure held for 35 minutes as the sheath was a size 7 Fr sheath. Dressing with vaseline gauze, gauze, and tegaderm applied once hemostasis was obtained. Patient instructed on bedrest instructions of 6 hours post sheath removal. All vitals stable at this time. Will continue to monitor.
[2024-10-09] VITALS (21 sets, daily range): BP systolic 112–150; BP diastolic 66–101; PULSE 58–76; RESP 10–24; TEMP 36.4–36.9; O2SAT 94–99
--- NOTE | 2024-10-09 | ECHO_ITS ---
Patient Info Name: Salvador Marks Age: 59 years : 1965 Gender: Male Ht: 73 in Wt: 234 lbs BSA: 2.36 m2 HR: 59 bpm BP: 132 / 95 mmHg Heart Rhythm: Sinus Rhythm Technical Quality: Fair Exam Date: 10/09/2024 7:25 AM Patient Status: I Admit Date: 10/08/2024 Exam Type: CA echo dop color flow w con Complete two-dimensional, color flow and Doppler transthoracic echocardiogram is performed with contrast to opacify the left ventricle and to improve the deliniation of the left ventricle endocardial borders. Railroad Mechanic: Mikala Sharif Attending Provider: Calixto Barreto Contrast/Agitated Saline Contrast/Ag. Saline: Definity Amount: 2.00 ml Administered By: Mikala Sharif Existing IV Access: Yes IV Access Condition: patent with no signs of infiltration Summary 1. Technically difficult study with limited visualization. 2. There is normal biventricular size and systolic function. 3. There is moderate concentric left ventricular hypertrophy. 4. There are no significant valvular abnormalities. 5. Cannot rule out minimal hypokinesis of inferoseptum and inferolateral chris. Left Ventricle The left ventricle is normal in size and systolic function. There is moderate concentric left ventricular hypertrophy. The left ventricular ejection fraction is visually estimated to be 55-60%. Cannot rule out minimal hypokinesis of the inferoseptum and inferolateral chris. Otherwise remaining wall motion are normal function. Right Ventricle The right ventricle is normal in size and systolic function. Left Atria The left atrium is normal size. Right Atria The right atrium is normal size. Atrial Septum The atrial septum is not well visualized. Aortic Valve There is no aortic stenosis. There is no aortic regurgitation. Pulmonic Valve The pulmonic valve is not well visualized. There is no color Doppler evidence of pulmonic valve regurgitation. Mitral Valve The mitral valve leaflets are sclerotic. There is no mitral stenosis. There is no mitral regurgitation. Tricuspid Valve The tricuspid valve is grossly normal. There is trace tricuspid regurgitation. Pericardium/Pleural The pericardium is not well visualized. Inferior Vena Cava Inferior vena cava is not well visualized. Aorta The aortic root at the level of the sinus of Valsalva measures 3.9 cm in diameter. Left Ventricular Outflow Tract Name Value Normal LVOT 2D LVOT Diameter 2.1 cm LVOT Doppler LVOT Peak Velocity 69 cm/s LVOT Peak Gradient 2 mmHg LVOT Mean Gradient 1 mmHg LVOT VTI 12 cm LVOT VTI/AV VTI Ratio 0.8 LVOT Stroke Volume 41 ml LVOT CO 2.4 l/min LVOT CI 1.0 l/min/m2 Pulmonic Valve Name Value Normal RVOT Doppler RVOT Peak Velocity 68 cm/s RVOT Peak Gradient 2 mmHg PV Doppler PV Peak Velocity 74 cm/s PV Peak Gradient 2 mmHg Mitral Valve Name Value Normal MV Diastolic Function MV E Peak Velocity 63 cm/s MV A Peak Velocity 71 cm/s MV E/A 0.9 MV Decel Time (PW) 204 ms MV Annular TDI MV E/e' (Septal) 11.2 MV E/e' (Lateral) 12.6 MV E/e' (Average) 11.9 Tricuspid Valve Name Value Normal TV Regurgitation Doppler TR Peak Velocity 231 cm/s TR Peak Gradient 21 mmHg Estimated PAP/RSVP RA Pressure 10 mmHg <=5 PA Systolic Pressure 31 mmHg <36 RV Systolic Pressure 31 mmHg <36 TV Annular TDI TV Lateral Marleny s' Velocity 15.2 cm/s >=9.5 Aorta Name Value Normal Ascending Aorta Ao Root Diameter (MM) 3.9 cm Ao Root Diam Index (MM) 1.7 cm/m2 Aortic Valve Name Value Normal AV Doppler AV Peak Velocity 111 cm/s AV Peak Gradient 5 mmHg AV Mean Gradient 2 mmHg AV VTI 15 cm AV Area (Cont Eq VTI) 2.7 cm2 >=3.0 AV Area (Cont Eq Andi) 2.2 cm2 AV DI (Andi) 0.62 AV Regurgitation 2D LVOT Area 3.5 cm2 Ventricles Name Value Normal LV Dimensions 2D/MM IVS Diastolic Thickness (2D) 1.6 cm 0.6-1.0 LVID Diastole (2D) 5.3 cm 4.2-5.8 LVIW Diastolic Thickness (2D) 1.3 cm 0.6-1.0 LVID Systole (2D) 3.5 cm 2.5-4.0 LVOT Diameter 2.1 cm LV Mass (2D Cubed) 331.75 g 88.00-224.00 LV Mass Index (2D Cubed) 140 g/m2 49-115 Relative Wall Thickness (2D) 0.50 <=0.42 LV Fractional Shortening/Ejection Fraction 2D/MM LV Fractional Shortening (2D) 33 % 25-43 LV EF (2D Teichholz) 61 % LV Diastolic Volume (4C MOD) 110 ml LV EF (4C MOD) 65 % LV Diastolic Volume (2C MOD) 65 ml LV EF (2C MOD) 59 % LV Diastolic Volume (BP MOD) 86 ml 62-150 LV Diastolic Volume Index (BP MOD) 37 ml/m2 34-74 LV Systolic Volume (BP MOD) 33 ml 21-61 LV Systolic Volume Index (BP MOD) 14 ml/m2 11-31 LV EF (BP MOD) 62 % 52-72 LV Diastolic Length (4C) 8.3 cm LV Systolic Length (4C) 7.2 cm LV Stroke Volume (4C MOD) 72 ml Atria Name Value Normal LA Dimensions LA Dimension (MM) 3.7 cm 3.0-4.0 LA Volume (4C A-L) 27 ml LA Volume (BP A-L) 30 ml RA Dimensions RA Area (4C) 9.6 cm2 <=18.0 Report Signatures
[2024-10-09 00:57] LABS: Troponin I > 80.000 ng/mL (0.000-0.034)
[2024-10-09 04:13] LABS: Basophils Percent Auto 0.2 % (0.2-1.2); Eosinophils Absolute Auto 0.1 K/mm3 (0-0.3); Hematocrit 44.5 % (42.0-52.0); Hemoglobin 15.1 g/dL (14.0-18.0); Immature Granulocyte Absolute 0.04 K/mm3 (0.00-0.031); Immature Granulocyte Percent A 0.3 % (0-0.5); Lymphocytes Absolute Auto 1.21 K/mm3 (0.9-3.2); Lymphocytes Percent Auto 9.7 % (18.3-44.2); Mean Corpuscular HGB Conc 33.9 g/dl (32-36); Mean Corpuscular Hemoglobin 30.1 pg (26-34); Mean Corpuscular Volume 88.6 fl (80-100); Mean Platelet Volume 9.6 fl (7.4-10.4); Monocytes Absolute Auto 0.9 K/mm3 (0.1-0.6); Monocytes Percent Auto 7.4 % (2.6-8.5); Neutrophils Absolute Auto 10.2 K/mm3 (1.3-6.7); Neutrophils Percent Auto 81.4 % (45.5-73.1); Platelet Count Result 205 k/mm3 (150-375); Red Blood Count 5.02 M/mm3 (4.6-6.20); Red Cell Distribution Width 13.7 % (11.5-14.5); White Blood Count 12.5 K/mm3 (4.5-10.0)
[2024-10-09 04:21] LABS: Hemoglobin A1C 5.7 % (<5.7)
[2024-10-09 04:32] LABS: Alanine Aminotransferase 42 U/L (6-50); Alkaline Phosphatase 60 U/L (38-126); Anion Gap 7 mmol/L (4-12); Aspartate Amino Transferase 347 U/L (17-59); Bilirubin,Total 1.1 mg/dL (0.2-1.3); Blood Urea Nitrogen 13 mg/dL (9-20); Calcium 9.2 mg/dL (8.4-10.2); Carbon Dioxide 22 mmol/L (22-30); Chloride 105 mmol/L (98-107); Estimated CRCL calculation 96 ml/min; Estimated Glomerular Filt Rate > 60; Glucose 95 mg/dL (65-110); Magnesium 2.2 mg/dL (1.6-2.3); Sodium 134 mmol/L (137-145); Total Protein 6.5 g/dL (6.3-8.2)
[2024-10-09] MEDS: PERFLUTREN LIPID MICROSPHERES 1.5 ML VIAL DILUTED TO 10 ML TOTAL VOLUME IV PUSH (08:00)
--- NOTE | 2024-10-09 08:13 | IVDEFINITY ---
Prior to administration of IV Definity the patient was educated on the risks and benefits of the imaging enhancing agent including potential adverse side effects. The patient verbalized understanding. Allergies were verified. No exclusion criteria were identified and at least one of the following inclusion criteria were met: 1) physician request, 2) patient technically difficult to image (per the [place] [employer] guidelines of two or more segments not discernable within the apical view), or 3) questionable left ventricular function. ?
[2024-10-09 08:26] LABS: Partial Thromboplastin Time 28.7 Seconds (22.3-36.8)
[2024-10-09] MEDS: carvediloL 3.125 MG TABLET PO (08:36)
[2024-10-09] MEDS: ASPIRIN 81 MG ENTERIC TABLET PO (08:36)
[2024-10-09] MEDS: COLCHICINE 0.6 MG TABLET PO (08:37)
[2024-10-09] MEDS: TICAGRELOR 90 MG TABLET PO (08:37)
--- NOTE | 2024-10-09 08:52 | ECG_ITS ---
Test Date: 2024-10-09 09:48:34 Measurements Intervals [place] Rate: 60 P: 12 DC: 168 QRS: -40 QRSD: 98 T: -68 QT: 432 QTc: 434 Interpretive Statements SINUS RHYTHM INFERIOR INFARCT, RECENT BASELINE ARTIFACT- V4-V6 ABNORMAL ECG Compared to ECG 10/08/2024 17:37:38 STEMI NO NO LONGER PRESENT Electronically Signed On 10-09-2024 10:51:22 CDT by Jaspreet Licea D.O.
--- NOTE | 2024-10-09 09:39 | WPDCNINT ---
Assessment and Plan Assessment and plan (1) STEMI (ST elevation myocardial infarction): Code(s): I21.3 - ST elevation (STEMI) myocardial infarction of unspecified site Status: Acute Assessment and Plan: 10/08/24; patient presented to the urgent care center with epigastric pain, nausea, pain in his scapula to the urgent care center, EKG with a showed inferior ST-elevation myocardial injury, patient was transferred to [facility] ER, where cardiac catheterization lab was activated Patient was taken to cardiac cardiac cath technologist where he was found to have occlusion of the distal RCA, status post LORETO x2 in overlapping fashion to the distal RCA. Patient went into a sinus arrest with ventricular escape rhythm for which he received atropine and recovered to sinus rhythm with normal ventricular rates. Angio-Seal was placed. Patient did get a venous sheath in the right groin for possible situation after transvenous pacer, which was not required -continue aspirin, statin, carvedilol, ticagrelor -cardiology following the patient (2) HTN (hypertension), benign: Code(s): I10 - Essential (primary) hypertension Status: Acute Assessment and Plan: Continue Coreg (3) Tobacco dependence: Code(s): F17.200 - Nicotine dependence, unspecified, uncomplicated Status: Acute Assessment and Plan: Counseled patient on cessation of tobacco use. He has stated that he has quit smoking from the time he arrived at the hospital. Plan DVT prophylaxis: Enoxaparin Stress ulcer prophylaxis: Not indicated Nutrition: Heart healthy diet Code Status: Full code Critical Care Time Spent: 46 minutes Due to a high probability of clinically significant, life threatening deterioration, the patient required my highest level of preparedness to intervene emergently and I personally spent this critical care time directly and personally managing the patient. This critical care time included obtaining a history; examining the patient; pulse oximetry; ordering and review of studies; arranging urgent treatment with development of a management plan; evaluation of patient's response to treatment; frequent reassessment; and discussions with other providers. It was exclusive of separately billable procedures and treating other patients and teaching time. Please see Assessment and Plan section and the rest of the note for further information on patient assessment and treatment This dictation may have been done utilizing a voice recognition system. Attempts have been made to correct errors. However, there may be uncorrected grammatical, spelling, and recognitions errors present. Mold Presser Consult Note Consult date: 10/09/24 Reason for consult: Chest pain, inferior STEMI status post stent x2 to distal RCA HPI: Salvador Marks is a 59 year old male with history of essential hypertension presented the ED with chest pain. Patient had gone to urgent care on the morning of 10/08/2024 with concern of sudden onset left scapula pain, epigastric pain, nausea. Over the was found to be in hypertensive and EKG showed ST elevations in the inferior leads and patient was transferred to the ER at [facility] on a cardiac cath team was activated. Patient was taken to cardiac cardiac cath technologist where he was found to have occlusion of the distal RCA, status post LORETO x2 in overlapping fashion to the distal RCA. Patient went into a sinus arrest with ventricular escape rhythm for which she received atropine and recovered to sinus rhythm with normal ventricular rates. Angio-Seal was placed. Patient did get a venous sheath in the right groin for possible situation after transvenous pacer, which was not needed. Patient was transferred to the ICU for further manage Patient seen and examined the ICU this morning, pleasant gentleman, chest pain-free, denies any shortness of breath, nausea, vomiting, any epigastric pain. Hemodynamically stable. Patient did have some bleeding after his venous sheath was pulled out. INR is 1.0, PT is 13 and a PTT is 28.7, all within normal limits Review of Systems Review of Systems: All systems reviewed & are unremarkable except as noted in HPI and below PMFSH Family History Family History (Updated 10/08/24 @ 15:[address] RN) Father Hypertension Social History Social History Smoking packs per day: 1 Smoking cigarettes per day: 20.0 Years smoked: 35 Smoking pack-years: 35.00 Smoking status: Current every day smoker Tobacco type: cigarettes Alcohol intake: current Drinks per week: 2 Substance use: never Substance use type: does not use Do You Feel Safe in your Home?: Yes Lack of Transportation: No Lack of Food: Never True Current Housing: I Have Housing Concerned About Future Housing: No Difficulty Paying Gas/Electric Bills: No Difficulty Paying for Meds: No Currently Unemployed: No Education: Associate Degree Difficulty w/ Childcare or Family Care: No Living arrangements: with family Spiritual care concerns: No Meds Home Medications and Allergies Home Medications ?Medication ?Instructions ?Recorded ?Confirmed ?Type amlodipine 10 mg-atorvastatin 10 See Rx Instructions .Route .COMPLEX 10/08/24 10/08/24 History mg tablet aspirin 81 mg tablet,delayed 81 mg PO DAILY #90 tabs 10/09/24 Rx release (Adult Low Dose Aspirin) atorvastatin 40 mg tablet 80 mg (2 x 40 mg) PO EVENING #180 10/09/24 Rx tabs carvedilol 3.125 mg tablet (Coreg) 3.125 mg PO Q12HR #180 tabs 10/09/24 Rx colchicine 0.6 mg tablet (Colcrys) 0.6 mg PO QAM #7 tabs 10/09/24 Rx losartan 100 mg tablet 100 mg PO QHS #90 tabs 10/09/24 Rx ticagrelor 90 mg tablet (Brilinta) 90 mg PO Q12HR #180 tabs 10/09/24 Rx Allergies Allergy/AdvReac Type Severity Reaction Status Date / Time Penicillins Allergy Mild Unknown Verified 10/08/24 13:21 Vital Signs Vital Signs - 24 hr 10/08/24 15:33 10/08/24 15:45 10/08/24 16:00 Temperature 97.4 F L 97.6 F Pulse Rate 61 61 61 Pulse Rate [Right Pedal (Dorsalis Pedis) Palpation] Respiratory Rate 16 15 15 Blood Pressure 144/97 H 138/97 H 145/98 H Pulse Oximetry 95 95 95 Oxygen Delivery 10/08/24 16:00 10/08/24 16:00 10/08/24 16:00 Temperature 97.5 F L Pulse Rate 60 61 Pulse Rate [Right Pedal (Dorsalis Pedis) Palpation] Respiratory Rate 18 Blood Pressure 145/98 H Pulse Oximetry 96 Oxygen Delivery Room Air 10/08/24 16:15 10/08/24 16:45 10/08/24 17:00 Temperature 97.1 F L 97.7 F Pulse Rate 61 59 L 66 Pulse Rate [Right Pedal (Dorsalis Pedis) Palpation] Respiratory Rate 16 15 18 Blood Pressure 141/98 H 150/99 H 146/104 H Pulse Oximetry 94 97 99 Oxygen Delivery 10/08/24 17:15 10/08/24 17:30 10/08/24 17:45 Temperature 97.7 F 97.5 F L Pulse Rate 64 63 64 Pulse Rate [Right Pedal (Dorsalis Pedis) Palpation] Respiratory Rate 14 18 16 Blood Pressure 146/104 H 161/104 H 148/114 H Pulse Oximetry 97 96 97 Oxygen Delivery 10/08/24 17:50 10/08/24 18:00 10/08/24 18:00 Temperature 97.5 F L Pulse Rate 66 64 60 Pulse Rate [Right Pedal (Dorsalis Pedis) Palpation] Respiratory Rate 16 Blood Pressure 157/104 H Pulse Oximetry 99 Oxygen Delivery 10/08/24 18:14 10/08/24 18:30 10/08/24 18:45 Temperature 97.4 F L Pulse Rate 66 65 66 Pulse Rate [Right Pedal (Dorsalis Pedis) Palpation] Respiratory Rate 13 16 18 Blood Pressure 148/107 H 160/111 H 148/99 H Pulse Oximetry 97 96 92 Oxygen Delivery 10/08/24 19:00 10/08/24 19:15 10/08/24 19:30 Temperature 97.4 F L Pulse Rate 65 60 68 Pulse Rate [Right Pedal (Dorsalis Pedis) Palpation] Respiratory Rate 18 18 18 Blood Pressure 165/106 H 160/108 H 144/96 H Pulse Oximetry 95 95 95 Oxygen Delivery 10/08/24 19:45 10/08/24 20:00 10/08/24 20:00 Temperature 97.8 F Pulse Rate 61 64 61 Pulse Rate [Right Pedal (Dorsalis Pedis) Palpation] Respiratory Rate 16 16 16 Blood Pressure 139/103 H 146/104 H Pulse Oximetry 93 93 94 Oxygen Delivery Room Air 10/08/24 20:00 10/08/24 20:00 10/08/24 20:15 Temperature 97.8 F Pulse Rate 61 61 63 Pulse Rate [Right Pedal (Dorsalis Pedis) Palpation] 61 61 Respiratory Rate 16 17 Blood Pressure 146/104 H 145/107 H Pulse Oximetry 96 95 Oxygen Delivery 10/08/24 20:30 10/08/24 20:45 10/08/24 21:00 Temperature 97.6 F Pulse Rate 72 67 66 Pulse Rate [Right Pedal (Dorsalis Pedis) Palpation] 72 67 67 Respiratory Rate 18 14 15 Blood Pressure 155/95 H 134/98 H 150/109 H Pulse Oximetry 100 95 97 Oxygen Delivery 10/08/24 21:15 10/08/24 21:30 10/08/24 21:45 Temperature Pulse Rate 83 63 72 Pulse Rate [Right Pedal (Dorsalis Pedis) Palpation] 67 67 67 Respiratory Rate 15 15 15 Blood Pressure 147/104 H 159/93 H 148/100 H Pulse Oximetry 94 96 96 Oxygen Delivery 10/08/24 22:00 10/08/24 22:00 10/08/24 22:15 Temperature 97.8 F Pulse Rate 82 82 62 Pulse Rate [Right Pedal (Dorsalis Pedis) Palpation] 82 82 Respiratory Rate 17 14 Blood Pressure 146/94 H 132/106 H Pulse Oximetry 97 96 Oxygen Delivery 10/08/24 22:30 10/08/24 22:35 10/08/24 22:40 Temperature Pulse Rate 60 61 61 Pulse Rate [Right Pedal (Dorsalis Pedis) Palpation] 82 Respiratory Rate 14 12 16 Blood Pressure 143/87 H 138/96 H 133/91 H Pulse Oximetry 97 95 95 Oxygen Delivery 10/08/24 22:45 10/08/24 22:50 10/08/24 22:54 Temperature Pulse Rate 64 66 64 Pulse Rate [Right Pedal (Dorsalis Pedis) Palpation] Respiratory Rate 17 16 19 Blood Pressure 137/99 H 139/94 H 149/89 H Pulse Oximetry 95 93 95 Oxygen Delivery 10/08/24 22:59 10/08/24 23:05 10/08/24 23:10 Temperature Pulse Rate 63 64 66 Pulse Rate [Right Pedal (Dorsalis Pedis) Palpation] Respiratory Rate 20 15 16 Blood Pressure 140/104 H 144/93 H 143/100 H Pulse Oximetry 95 95 95 Oxygen Delivery 10/08/24 23:15 10/08/24 23:20 10/08/24 23:35 Temperature Pulse Rate 67 68 63 Pulse Rate [Right Pedal (Dorsalis Pedis) Palpation] 68 65 Respiratory Rate 16 18 14 Blood Pressure 136/89 136/89 151/92 H Pulse Oximetry 95 95 95 Oxygen Delivery 10/08/24 23:50 10/09/24 00:00 10/09/24 00:00 Temperature 97.6 F Pulse Rate 70 60 66 Pulse Rate [Right Pedal (Dorsalis Pedis) Palpation] 70 Respiratory Rate 15 16 18 Blood Pressure 148/87 H 138/90 Pulse Oximetry 94 95 94 Oxygen Delivery Room Air 10/09/24 00:00 10/09/24 00:05 10/09/24 00:35 Temperature 97.6 F Pulse Rate 74 66 58 L Pulse Rate [Right Pedal (Dorsalis Pedis) Palpation] 66 58 L Respiratory Rate 18 13 Blood Pressure 138/90 141/86 H Pulse Oximetry 94 95 Oxygen Delivery 10/09/24 01:05 10/09/24 02:00 10/09/24 02:00 Temperature Pulse Rate 69 64 63 Pulse Rate [Right Pedal (Dorsalis Pedis) Palpation] 69 Respiratory Rate 12 12 Blood Pressure 131/94 H 150/95 H Pulse Oximetry 97 97 Oxygen Delivery 10/09/24 02:05 10/09/24 03:05 10/09/24 03:50 Temperature 97.7 F Pulse Rate 63 61 64 Pulse Rate [Right Pedal (Dorsalis Pedis) Palpation] 63 61 Respiratory Rate 16 12 15 Blood Pressure 150/95 H 133/97 H Pulse Oximetry 98 94 95 Oxygen Delivery Room Air 10/09/24 04:00 10/09/24 04:00 10/09/24 04:05 Temperature 97.8 F 97.8 F Pulse Rate 71 72 59 L Pulse Rate [Right Pedal (Dorsalis Pedis) Palpation] 59 L Respiratory Rate 18 18 Blood Pressure 126/90 126/90 Pulse Oximetry 99 97 Oxygen Delivery 10/09/24 05:05 10/09/24 05:56 10/09/24 06:00 Temperature Pulse Rate 60 59 L Pulse Rate [Right Pedal (Dorsalis Pedis) Palpation] 60 60 Respiratory Rate 15 Blood Pressure 132/83 Pulse Oximetry 95 Oxygen Delivery 10/09/24 06:00 10/09/24 08:00 10/09/24 08:00 Temperature 97.8 F 97.9 F Pulse Rate 59 L 70 74 Pulse Rate [Right Pedal (Dorsalis Pedis) Palpation] Respiratory Rate 10 L 16 13 Blood Pressure 132/95 H Pulse Oximetry 96 94 95 Oxygen Delivery Room Air 10/09/24 08:00 10/09/24 08:36 Temperature Pulse Rate 74 65 Pulse Rate [Right Pedal (Dorsalis Pedis) Palpation] Respiratory Rate Blood Pressure Pulse Oximetry Oxygen Delivery Exam Narrative: General: Pleasant gentleman in no acute distress HEENT:? Pupils equal and reactive, sclerae ischemia, moist oral mucosa Neck:? Supple Respiratory:? Clear to auscultation bilaterally, no wheezing, adequate air entry Cardiac:? S1-S2 is normal, regular rate and rhythm Abdomen:? Soft, nontender, nondistended, normoactive bowel sounds Extremities:? Right groin site with dressing which is mildly soiled with blood, palpable pedal pulses Neuro:? Patient is awake, alert, oriented x3, nonfocal Skin:? No lesions noted Psych:? Normal mentation after Results Labs 10/09/24 03:55 10/09/24 03:55 Labs: Short CBC 10/08/24 10/09/24 Range/Units 14:24 03:55 WBC 10.0 12.5 H (4.5-10.0) K/mm3 Hgb 13.2 L 15.1 (14.0-18.0) g/dL Hct 39.4 L 44.5 (42.0-52.0) % Plt Count 175 205 (150-375) k/mm3 BMP 10/08/24 10/09/24 14:24 03:55 Sodium 135 L 134 L Potassium 3.1 L 4.0 Chloride 104 105 Carbon Dioxide 21 L 22 BUN 14 13 Creatinine 0.84 0.91 Glucose 91 95 Calcium 7.4 L 9.2 Cardiac Enzymes 10/08/24 10/08/24 10/09/24 Range/Units 14:24 17:09 00:23 Troponin I 0.843 H* 39.000 H* D > 80.000 H* D (0.000-0.034) ng/mL 10/09/24 Range/Units 03:55 Troponin I 72.500 H* (0.000-0.034) ng/mL Liver Function 10/08/24 10/09/24 Range/Units 14:24 03:55 Total Bilirubin 0.6 1.1 (0.2-1.3) mg/dL AST 33 347 H (17-59) U/L ALT 14 42 (6-50) U/L Alkaline Phosphatase 48 60 (38-126) U/L Albumin 3.1 L 4.0 (3.5-5.1) g/dL Quality VTE Prophylaxis VTE prophylaxis: pharmacologic ordered Hospitalist MIPS Advance Care Plan I have confirmed that the patient's Advanced Care Plan is present, code status is documented, or surrogate decision maker is listed in patient medical record.: Yes Medication Reconciliation I have utilized all available resources to obtain, update and review the patients current medications (includes all prescriptions, OTC, herbals, cannabis, and nutritional supplements).: Yes
--- NOTE | 2024-10-09 10:25 | P.DS_ITS ---
DS: Admitting Diagnosis Discharge Date 10/09/2024 Admitting Diagnosis Inferior STEMI DS: Summary Hospital Course Reason for hospitalization: Chest pain Hospital Course: 59-year-old man with hypertension hyperlipidemia presented to urgent care with chest discomfort that started earlier that morning found to have inferior ST- elevation KS for which he was transferred [facility] for primary PCI. On arrival patient was still complaining of chest discomfort and continue to have ST-elevation KS on EKG. After discussion of risks, benefits, alternatives patient expressed understanding and decided to proceed for with primary PCI. Was found have an occluded distal RCA which was revascularized complicated by sinus arrest which resolved with atropine as well as coughing and no reflow phenomenon for which intracoronary vasodilators were given with return of MACKENZIE 3 flow. Patient was admitted to the ICU where he had occasional ventricular ectopy as well as reperfusion rhythm. This morning, his pain and chest discomfort has completely resolved. He feels much better. Overnight he did has some orthopnea for which Lasix was given. Currently is able to lay flat without any cardiopulmonary complaints. His his venous sheath was removed. The venous sheath was additionally placed when he went into sinus arrest during cardiac catheterization right after balloon angioplasty of his occluded distal RCA. The venous sheath was manually pulled overnight however has been oozing from likely capillary bleed. A Femstop was placed this morning with a ventral resolution of the venous oozing most likely from capillary bleed. Patient had no other symptoms and no other active issues. He is able to ambulate without cardiopulmonary limitations. Therefore he was discharged in stable condition to follow-up in cardiology clinic to further discuss any additional medical management/adjustments followed by cardiac rehab. He will also need staged PCI of his left circumflex in the near future. Status at Discharge Functional status at discharge: independent ambulation Overall status at discharge: patient is back to baseline Time Spent with Patient Time attestation: Total time spent providing and/or coordinating discharge services: Time spent: Greater than 30 minutes Exam Const: General: comfortable HENMT: Mouth: Yes moist mucous membranes Eyes: EOM: EOMs intact bilaterally Neck: Neck: no JVD Resp: Effort & Inspection: normal respiratory effort Auscultation: clear to auscultation bilaterally Cardio: Rate: regular rate Rhythm: regular rhythm GI: GI Palp: Yes Soft to palpation Extrem: General: no pedal edema DS: Data Data Completed and Pending Labs on day of discharge: Labs from last 24 hours 10/09/24 10/09/24 10/09/24 08:00 03:55 00:23 WBC 12.5 H RBC 5.02 Hgb 15.1 Hct 44.5 MCV 88.6 MCH 30.1 MCHC 33.9 RDW 13.7 Plt Count 205 MPV 9.6 Immature Gran % (Auto) 0.3 Neut % (Auto) 81.4 H Lymph % (Auto) 9.7 L Jennings % (Auto) 7.4 Eos % (Auto) 1.0 Baso % (Auto) 0.2 Lymph # (Auto) 1.21 Jennings # (Auto) 0.9 H Eos # (Auto) 0.1 Baso # (Auto) 0.0 Abs Immat Gran (auto) 0.04 H Absolute Neuts (auto) 10.2 H Absolute Nucleated RBC 0.000 Nucleated RBC % 0.0 PT 13.0 INR 1.0 APTT 28.7 Activ Coag Time Kaolin Sodium 134 L Potassium 4.0 Chloride 105 Carbon Dioxide 22 Anion Gap 7 BUN 13 Creatinine 0.91 Estim Creat Clear Calc 96 Estimated GFR > 60 Glucose 95 Hemoglobin A1c 5.7 Lactic Acid 1.0 Calcium 9.2 Magnesium 2.2 Total Bilirubin 1.1 AST 347 H ALT 42 Alkaline Phosphatase 60 Troponin I 72.500 H* > 80.000 H* D Total Protein 6.5 Albumin 4.0 Nasal MRSA (PCR) 10/08/24 10/08/24 10/08/24 20:22 17:09 15:46 WBC RBC Hgb Hct MCV MCH MCHC RDW Plt Count MPV Immature Gran % (Auto) Neut % (Auto) Lymph % (Auto) Jennings % (Auto) Eos % (Auto) Baso % (Auto) Lymph # (Auto) Jennings # (Auto) Eos # (Auto) Baso # (Auto) Abs Immat Gran (auto) Absolute Neuts (auto) Absolute Nucleated RBC Nucleated RBC % PT INR APTT 29.9 174.4 H* Activ Coag Time Kaolin Sodium Potassium Chloride Carbon Dioxide Anion Gap BUN Creatinine Estim Creat Clear Calc Estimated GFR Glucose Hemoglobin A1c Lactic Acid Calcium Magnesium 1.9 Total Bilirubin AST ALT Alkaline Phosphatase Troponin I 39.000 H* D Total Protein Albumin Nasal MRSA (PCR) Not detected 10/08/24 10/08/24 10/08/24 14:53 14:25 14:24 WBC 10.0 RBC 4.37 L Hgb 13.2 L Hct 39.4 L MCV 90.2 MCH 30.2 MCHC 33.5 RDW 13.5 Plt Count 175 MPV 9.6 Immature Gran % (Auto) Neut % (Auto) Lymph % (Auto) Jennings % (Auto) Eos % (Auto) Baso % (Auto) Lymph # (Auto) Jennings # (Auto) Eos # (Auto) Baso # (Auto) Abs Immat Gran (auto) Absolute Neuts (auto) Absolute Nucleated RBC Nucleated RBC % PT INR APTT Activ Coag Time Kaolin 268 H 268 H Sodium 135 L Potassium 3.1 L Chloride 104 Carbon Dioxide 21 L Anion Gap 10 BUN 14 Creatinine 0.84 Estim Creat Clear Calc Not Reportable Estimated GFR > 60 Glucose 91 Hemoglobin A1c Lactic Acid Calcium 7.4 L Magnesium Total Bilirubin 0.6 AST 33 ALT 14 Alkaline Phosphatase 48 Troponin I 0.843 H* Total Protein 5.3 L Albumin 3.1 L Nasal MRSA (PCR) Discharge Plan Discharge Attending physician on discharge: Calixto Barreto Consulting providers: Eliud Leger Discharging Clinician: Calixto Barreto Patient Disposition: Home Activity: other - see discharge instructions Diet: heart healthy Wound Care Instructions: follow printed instructions Patient Instructions: Antibiotic Form, Ticagrelor (By mouth), Heart Attack (DC), Heart Healthy Diet (DC), Heart Catheterization (DC), Coronary Intravascular Stent Placement (DC), Angio-Seal (DC) Patient Language: Telugu Stand Alone Forms: General Discharge Information Follow-up/Referrals: Calixto Barreto MD [Physician] - Discharge Medications: New carvedilol [Coreg] 3.125 mg Tablet 3.125 mg PO Q12HR Qty: 180 0RF colchicine [Colcrys] 0.6 mg Tablet 0.6 mg PO QAM Qty: 7 0RF ticagrelor [Brilinta] 90 mg Tablet 90 mg PO Q12HR Qty: 180 0RF atorvastatin 40 mg Tablet 80 mg PO EVENING Qty: 180 0RF losartan [Cozaar] 50 mg Tablet 50 mg PO DAILY Qty: 90 3RF Continued aspirin [Adult Low Dose Aspirin] 81 mg tablet,delayed release (DR/EC) 81 mg PO DAILY Qty: 90 0RF Discontinued losartan 100 mg tablet See Rx Instructions .ROUTE .COMPLEX Rx Instructions: TAKE 1 TABLET BY MOUTH AT HS amlodipine-atorvastatin 10-10 mg tablet See Rx Instructions .ROUTE .COMPLEX Rx Instructions: TAKE 1 TABLET BY MOUTH AT HS Date of admission: 10/08/24 13:36 Primary Care Provider: Heber Harry Admitting Provider: Calixto Barreto Attending physician on admission: Calixto Barreto Condition: Guarded Prognosis
== END 2024-10-09 16:07 | disposition home or self-care (01) | DRG 322 ==
LOC: ANHED 13:34 → ANHICU 13:37
PROVIDERS: Internal Medicine; Admitting Provider Internal Medicine; Emergency Provider Student in an Organized Health Care Education/Training Program; PCP Family Medicine; Visit Provider Internal Medicine
PROC: 4A023N7 Measurement of Cardiac Sampling and Pressure, Left Heart, Percutaneous Approach (ICD-10-PCS; CPT 93452; principal; 2024-10-08 13:35)
PROC: 027034Z Dilation of Coronary Artery, One Artery with Drug-eluting Intraluminal Device, Percutaneous Approach (ICD-10-PCS; CPT 92928; 2024-10-08 13:35)
PROC: 4A023N7 Measurement of Cardiac Sampling and Pressure, Left Heart, Percutaneous Approach (ICD-10-PCS; 2024-10-08 13:35)
PROC: 4A023N7 Measurement of Cardiac Sampling and Pressure, Left Heart, Percutaneous Approach (ICD-10-PCS; 2024-10-08 13:35)
DX: I21.19 ST elevation (STEMI) myocardial infarction involving other coronary artery of inferior wall (principal); I10 Essential (primary) hypertension; F17.210 Nicotine dependence, cigarettes, uncomplicated; E78.5 Hyperlipidemia, unspecified
CPT/HCPCS: 36415; 80053; 83036; 83605; 83735; 84484; 85025; 85027; 85610; 85730; 87641; 92978; 93005; 93306; 93458; 96374; 99285; A9270; C1725; C1753; C1760; C1769; C1874; C1887; C1894; C8929; C9606; G0269; J0153; J0461; J1327; J1644; J1938; J2003; J2250; J2305; J3010; J7040; Q9957

== ENCOUNTER 2024-10-21 00:53 | Day surgery (SDC) | payer OTHER, SELFPAY ==
[2024-10-20 11:26] VITALS: BMI 29.0
[2024-10-21] VITALS (18 sets, daily range): BP systolic 126–184; BP diastolic 90–120; PULSE 54–91; RESP 14–20; TEMP 36.4; O2SAT 95–99; BMI 28.2
[2024-10-21 07:40] LABS: Basophils Absolute Auto 0.1 K/mm3 (0.0-0.1); Basophils Percent Auto 0.6 % (0.2-1.2); Eosinophils Absolute Auto 0.3 K/mm3 (0-0.3); Eosinophils Percent Auto 3.7 % (0-4.4); Hematocrit 45.8 % (42.0-52.0); Hemoglobin 15.3 g/dL (14.0-18.0); Immature Granulocyte Absolute 0.03 K/mm3 (0.00-0.031); Immature Granulocyte Percent A 0.3 % (0-0.5); Lymphocytes Absolute Auto 1.34 K/mm3 (0.9-3.2); Lymphocytes Percent Auto 15.3 % (18.3-44.2); Mean Corpuscular HGB Conc 33.4 g/dl (32-36); Mean Corpuscular Hemoglobin 30.1 pg (26-34); Mean Corpuscular Volume 90.2 fl (80-100); Mean Platelet Volume 9.8 fl (7.4-10.4); Monocytes Absolute Auto 0.6 K/mm3 (0.1-0.6); Neutrophils Absolute Auto 6.4 K/mm3 (1.3-6.7); Neutrophils Percent Auto 73.1 % (45.5-73.1); Platelet Count Result 255 k/mm3 (150-375); Red Blood Count 5.08 M/mm3 (4.6-6.20); Red Cell Distribution Width 13.3 % (11.5-14.5); White Blood Count 8.8 K/mm3 (4.5-10.0)
[2024-10-21 07:48] LABS: Anion Gap 10 mmol/L (4-12); Blood Urea Nitrogen 16 mg/dL (9-20); Calcium 9.7 mg/dL (8.4-10.2); Carbon Dioxide 22 mmol/L (22-30); Chloride 109 mmol/L (98-107); Estimated CRCL calculation 70 ml/min; Estimated Glomerular Filt Rate > 60; Glucose 106 mg/dL (65-110); Potassium 3.9 mmol/L (3.4-5.0); Sodium 141 mmol/L (137-145)
--- NOTE | 2024-10-21 08:39 | P.SEDATION_ITS ---
Moderate Sedation Note-Pt Data Patient Data Allergies Allergy/AdvReac Type Severity Reaction Status Date / Time Penicillins Allergy Mild Unknown Verified 10/21/24 07:16 Home Medications ?Medication ?Instructions ?Recorded ?Confirmed ?Type aspirin 81 mg tablet,delayed 81 mg PO DAILY #90 tabs 10/09/24 10/21/24 Rx release (Adult Low Dose Aspirin) atorvastatin 40 mg tablet 80 mg (2 x 40 mg) PO EVENING #180 10/09/24 10/20/24 Rx tabs carvedilol 3.125 mg tablet (Coreg) 3.125 mg PO Q12HR #180 tabs 10/09/24 10/21/24 Rx losartan 50 mg tablet (Cozaar) 50 mg PO DAILY #90 tabs 10/09/24 10/21/24 Rx ticagrelor 90 mg tablet (Brilinta) 90 mg PO Q12HR #180 tabs 10/09/24 10/21/24 Rx Sedation/Anesthesia: No previous sedation/anesthesia problems (including family history). COUNTS INCLUDE 234 BEDS AT THE [facility] Family History Family History (Updated 10/08/24 @ 15:[address] RN) Father Hypertension Social History Social History Smoking packs per day: 0 Smoking cigarettes per day: 0.0 Years smoked: 35 Smoking pack-years: 0.00 Smoking status: Former smoker Tobacco type: cigarettes Second hand tobacco smoke exposure: No Smoking end date: 10/08/24 Alcohol intake: current Drinks per week: 2 Substance use: never Substance use type: does not use Do You Feel Safe in your Home?: Yes Lack of Transportation: No Lack of Food: Never True Current Housing: I Have Housing Concerned About Future Housing: No Difficulty Paying Gas/Electric Bills: No Difficulty Paying for Meds: No Currently Unemployed: No Education: Associate Degree Difficulty w/ Childcare or Family Care: No Living arrangements: with family Spiritual care concerns: No Mod Sed Physical Exam Physical Exam Pre Procedural Exam: Normal: Lungs, Heart Size and Heart Rhythm and Variation: Heart Rate (bradycardic) Hours since solid foods: 12 Hours since liquid intake: 12 Mallampati Classification: class III Internal Medicine - PN: Obj Da Vital Signs Vital Signs: Vital Signs - 24 hr 10/21/24 07:18 Temperature 36.4 C Pulse Rate 54 L Respiratory Rate 14 Blood Pressure 154/94 H Pulse Oximetry 97 Oxygen Delivery Room Air Labs 10/21/24 07:23 10/21/24 07:23 Labs: Laboratory Results - last 24 hr 10/21/24 07:23 WBC 8.8 RBC 5.08 Hgb 15.3 Hct 45.8 MCV 90.2 MCH 30.1 MCHC 33.4 RDW 13.3 Plt Count 255 MPV 9.8 Immature Gran % (Auto) 0.3 Neut % (Auto) 73.1 Lymph % (Auto) 15.3 L Clinton % (Auto) 7.0 Eos % (Auto) 3.7 Baso % (Auto) 0.6 Lymph # (Auto) 1.34 Clinton # (Auto) 0.6 Eos # (Auto) 0.3 Baso # (Auto) 0.1 Abs Immat Gran (auto) 0.03 Absolute Neuts (auto) 6.4 Absolute Nucleated RBC 0.000 Nucleated RBC % 0.0 Sodium 141 Potassium 3.9 Chloride 109 H Carbon Dioxide 22 Anion Gap 10 BUN 16 Creatinine 1.11 Estim Creat Clear Calc 70 Estimated GFR > 60 Glucose 106 Calcium 9.7 ASA Classification/Sedation ASA Classification/Sedation ASA Class: III Emergent: No Risks: Risks, benefits and alternatives explained and patient/family accepted plan for sedation. Patient re-evaluated immediately prior to sedation.
--- NOTE | 2024-10-21 08:39 | WPDHPUPDATE1 ---
History and Physical Update Update Date/Time: 10/21/24 08:32 History and Physical has been reviewed, including an updated exam of the patient. There are NO changes in the patient's condition. Risks, benefits, and alternatives have been discussed and questions answered. Patient agrees to proceed with procedure.
--- NOTE | 2024-10-21 10:08 | WPDCARDPROC ---
Cardiac Cath Procedure Note Date of procedure:: 10/21/24 Performing physician:: CATHETERIZATION LABORATORY REPORT Procedure Date: 10/21/2024 Referring Physician: Dr. Barreto Anesthesia: Versed and Fentanyl were ordered and given in my presence at 0910, procedure ended at 1001. Supervision of nurse, Negra Chris monitored moderate sedation with 2mg Versed and 200mcg Fentanyl was provided for 51 minutes. Pre-op Diagnosis: Obstructive coronary artery disease Post-op Diagnosis: Obstructive coronary artery disease Procedure(s): Left heart catheterization with coronary angiography Access Site: Right radial artery Brief History and Clinical Indications: 59-year-old man with hypertension hyperlipidemia who was recently admitted for inferior ST-elevation AR status post primary PCI who now returns for complete revascularization of a 80-90% left circumflex lesion. All risks, benefits and alternatives to left heart catheterization with or without percutaneous coronary intervention was discussed at length with the patient. Risk of complications including but not limited to bleeding, infection, arrhythmia, stroke, worsening kidney function, blood loss, groin hematoma, limb loss, emergency coronary artery bypass grafting, and even were discussed with the patient and all questions were answered. The patient understood and wished to proceed. Time out called, patient name, date of , medical record number, allergies, procedure performed, identify Judicial Law Clerk, patient and staff member concurred with accurate data, procedure carried on. Findings: LEFT HEART CATHETERIZATION FINDINGS: 1. Left main: The left main coronary artery is widely patent without any significant obstructive disease. 2. Left anterior descending: The LAD and the diagonal branches are unchanged from previous angiogram. 3. Left circumflex: The left circumflex artery has a 80-90% stenosis. 4. Right coronary artery: The RCA is a large dominant vessel with a patent stent in the distal body. 5. Left ventricle: A. End-diastolic pressure 22 mmHg. B. LV gram deferred. C. No significant gradient across aortic valve on catheter pullback. 6. Opening AO pressure 131/89 and closing AO pressure 177/95 Description of Procedure: Informed consent signed and placed in the chart. Patient transferred to process laboratory specialist room. Prepped and draped in usual sterile fashion. 2% lidocaine injected subcutaneously in right wrist area. 22-gauge venipuncture catheter used to access the right radial artery with the Seldinger technique. 6-FR slender sheath placed in right radial artery. Nitroglycerin 200mcg, Verapamil 2.5mg, and Heparin 5000U was given intraarterial through the sheath. J wire advanced under fluoroscopy. 5F JR4 diagnostic catheter engaged Right Coronary Artery. 5F Pigtail crossed the aortic valve to obtain LVEDP and pull back gradient performed. 6F EBU 3.5 Guide catheter was used to engage the LMCA. Multiple orthogonal angiogram obtained and reviewed Procedure Description for PCI: Heparin was used for anticoagulation (ACT maintained above 250) Patient loaded with heparin at 70 units/kg. 0.014 Runthrough coronary wire was passed in to the distal OM branch. The lesion was pre-dilated with a 2.5 x 20mm balloon inflated to high CASTILLO. A 3.0 x 22mm [place] Page LORETO was successfully deployed into LCx. IVUS was performed showing showing adequate expansion and apposition. It was felt that this could be further optimized. The stent was post-dilated with a 3.5x20mm NC balloon inflated to high CASTILLO. Intracoronary NTG was administered. Follow-up angiograms showed an excellent result. Coronary wire and guide-catheter were removed under fluoroscopy. A JL 3.5 diagnostic catheter was used to re-engage the left main coronary artery as final angiograms were not performed when the guide catheter disengaged. The JL 3.5 diagnostic catheter was unable to reach the left main coronary artery and thus switched out for a JL 4.0 diagnostic catheter and final angiograms demonstrated excellent results. Pre-procedure - MACKENZIE 3 flow Post-procedure - MACKENZIE 3 flow No angiographic complications identified. Hemostasis was achieved by application of TR band. Assessment: Successful staged PCI to the left circumflex with a 3.0 x 22mm [place] Page LORETO; post dilated with a 3.5 x 20mm NC to high atmosphere with excellent results. Post Operative Condition: Stable No significant blood loss Disposition: Home Plan: Continue aspirin 81 mg p.o. indefinitely. Continue Brilinta 90 mg p.o. b.i.d. for minimum of 1 year. Increase losartan to 100 mg p.o. daily given his elevated blood pressure. Continue atorvastatin 80 mg every evening. Continue aggressive medical management. Follow-up in clinic in 2-4 weeks [facility] [place] Interventional Cardiology
[2024-10-21 10:17] LABS: Activated Clotting Time 262 SEC (74-137)
[2024-10-21] MEDS: NIFEdipine 30 MG TAB.ER.24 PO ×2 (10:45→12:35)
[2024-10-21] MEDS: SODIUM CHLORIDE 0.9% IV 1,000 ML 125 ML IV CONT (10:45)
--- NOTE | 2024-10-21 11:56 | PCCCNOTE ---
Care Coordination referral received for notification for an opted out of Meds to Beds program. Spoke with patient's RN, Negra, who states that the patient has opted out of the Meds to Beds program because Brilinta is a home med and has already obtained the medication.
--- NOTE | 2024-10-21 12:01 | SUR.PHASEII ---
This RN contacted Dr. Estevan ARIAS to inquire about additional blood pressure medication due to pt's continued elevated pressures after 30mg of nifedipine. MD Barreto states to give another 30mg of nifedipine.
== END 2024-10-21 14:35 | disposition home or self-care (01) ==
PROVIDERS: PCP Family Medicine; Visit Provider Internal Medicine
PROC: 4A023N7 Measurement of Cardiac Sampling and Pressure, Left Heart, Percutaneous Approach (ICD-10-PCS; CPT 93452; principal; 2024-10-21 08:30)
PROC: 027034Z Dilation of Coronary Artery, One Artery with Drug-eluting Intraluminal Device, Percutaneous Approach (ICD-10-PCS; CPT 92928; 2024-10-21 08:30)
DX: I25.10 Atherosclerotic heart disease of native coronary artery without angina pectoris (principal); Z79.82 Long term (current) use of aspirin; Z79.02 Long term (current) use of antithrombotics/antiplatelets; Z87.891 Personal history of nicotine dependence
CPT/HCPCS: 36415; 80048; 85025; 92978; 93458; A9270; C1725; C1753; C1769; C1874; C1887; C1894; C9600; J1644; J2003; J2250; J2305; J3010; J7030; J7040